=== PATIENT | female | born 1970 | race Caucasian/White ===

== ENCOUNTER 2025-02-05 18:52 | Inpatient (IN) | payer OTHER ==
[2025-02-05] MEDS ORDERED: VANCOMYCIN IV PER PHARMACY 1 EACH MISC MISCELLANE PRN (19:12)
[2025-02-05] MEDS ORDERED: RX INFO: IV CONTRAST WAS GIVEN 1 EACH MISC MISCELLANE PRN (19:13)
--- NOTE | 2025-02-05 19:14 | ED ---
Extremity Problem HPI - General Chief complaint: Extremity Problem,Nontraumatic Stated complaint: L arm injury Time Seen by Provider: 02/05/25 19:02 Source: patient, RN notes reviewed Mode of arrival: ambulatory Limitations: no limitations - History of Present Illness Initial comments: This is a 54-year-old female who presents to the emergency department for left upper extremity pain and swelling. Patient is an IV drug user and last injected meth into the left arm about a week ago. States that 2 days ago she started to notice increasing pain and swelling going down the arm. She has not had any fevers or chills. Denies any nausea/vomiting. She has had abscesses from injecting herself in the past, but has never had anything this severe. States she last had an abscess a couple of years ago. Denies using any other illicit substances. MD Complaint: extremity pain, extremity swelling - Related Data Allergies Allergy/AdvReac Type Severity Reaction Status Date / Time Sulfa (Sulfonamide Allergy Itching Verified 02/05/25 19:03 Antibiotics) Review of Systems ROS Statement: Those systems with pertinent positive or pertinent negative responses have been documented in the HPI. ROS Other: All systems not noted in ROS Statement are negative. Past Medical History Past Medical History: Diabetes Mellitus Additional Past Surgical History / Comment(s): lung surgery Smoking Status: Current every day smoker Past Alcohol Use History: None Reported Past Drug Use History: Methamphetamine General Exam Limitations: no limitations General appearance: alert, in no apparent distress Head exam: Present: atraumatic, normocephalic, normal inspection Respiratory exam: Present: normal lung sounds bilaterally. Absent: respiratory distress, wheezes, rales, rhonchi, stridor Cardiovascular Exam: Present: normal rhythm, tachycardia Extremities exam: Present: other (Diffuse swelling, erythema, warmth, and tenderness to the left upper extremity beginning around the antecubital fossa and spreading distally. 2+ radial pulses) Neurological exam: Present: alert, oriented X3, CN II-XII intact Psychiatric exam: Present: normal affect, normal mood Course Vital Signs 02/05/25 02/05/25 02/05/25 18:58 19:07 21:25 Temperature 98.0 F 98.7 F Pulse Rate 140 H 140 H 126 H Respiratory 17 19 Rate Blood Pressure 164/103 142/106 155/92 O2 Sat by Pulse 98 99 100 Oximetry 02/05/25 23:10 Temperature 98.3 F Pulse Rate 114 H Respiratory 19 Rate Blood Pressure 138/78 O2 Sat by Pulse 99 Oximetry Medical Decision Making - Medical Decision Making This is a 54-year-old female who presents to the emergency department for left arm pain and swelling. Was pt. sent in by a medical professional or institution? @ -No Did you speak to anyone other than the patient for history? @ -No Did you review nursing and triage notes? @ -Yes, and I agree, it is accurate with regards to the patient's symptoms. Were old charts reviewed? @ -No Differential Diagnosis? @ -Differential Musculoskeletal Muscular strain, contusion, ligament sprain, fracture, arthritis, septic arthritis, bursitis, cellulitis, muscle spasm, nerve compression, DVT, arterial occlusion, herpes zoster, electrolyte abnormality, tumor.... This is not meant to be in all inclusive list EKG interpreted by me (3pts min.)? @ -EKG interpreted by me demonstrating the following: Sinus tachycardia. Ventr icular rate 112 bpm, IL interval 112 ms, QRS duration 75 ms, QTc 404 ms. X-rays interpreted by me (1pt min.)? @ -Not obtained CT interpreted by me (1pt min.)? @ -CT scan of the left upper extremity obtained. My interpretation identifies an abscess in the antecubital fossa. U/S interpreted by me (1pt. min.)? @ -Not obtained What testing was considered but not performed? (CT, X-rays, U/S, labs)? Why? @ -None What meds were considered but not given? Why? @ -None Did you discuss the management of the patient with other professionals? @ -Yes, Dr. Bauer, who accepts the patient for admission. Did you reconcile home meds? @ -No Was smoking cessation discussed for >3mins.? @ -No Was critical care preformed (if so, how long)? @ -Yes, >35 minutes Were there social determinants of health that impacted care today? How? (Homelessness, low income, unemployed, alcoholism, drug addiction, transportation, low edu. Level, literacy, decrease access to med. care, prison, rehab)? @ -Drug addiction, leading to the infection Was there de-escalation of care discussed even if they declined? (Discuss DNR or withdrawal of care, Hospice)? @ -No What co-morbidities impacted this encounter? (DM, HTN, Smoking, COPD, CAD, Cancer, CVA, Hep., AIDS, mental health diagnosis, sleep apnea, morbid obesity)? @ -DM, IVDU Was patient admitted / discharged? @ -Admitted. Physical examination of the left upper extremity consistent with diffuse cellulitis with probable abscess over the left antecubital fossa. Lab work demonstrates leukocytosis with a white blood cell count of 16.97. Glucose is 508, lactic acid 2.2, CRP 26.3. She has an anion gap of 18, however carbon dioxide is within normal limits at 25 and acetone negative. Patient tachycardic on arrival with a heart rate in the 140s. She met sepsis criteria at 2100 when the results of her laboratory studies returned demonstrating leukocytosis. SIRS criteria include the leukocytosis and tachycardia. Source of infection is the left upper extremity infection. 2 L of lactated Ringer's administered per sepsis fluid requirements and she was also started on maintenance IV fluids. Blood culture obtained and she was started on vancomycin and Zosyn. CT scan of the left upper extremity was obtained and results returned after the patient was admitted. This demonstrates an abscess in the antecubital fossa consisting of loculated fluid and multiple foci of air. She also has circumferential subcutaneous edema consistent with soft tissue infection. Patient admitted to medicine for left upper extremity cellulitis with sepsis. Consult placed for infectious disease. Case discussed with ED attending Dr. Hniojosa. Undiagnosed new problem with uncertain prognosis? @ -None Drug Therapy requiring intensive monitoring for toxicity (Heparin, Nitro, Insulin, Cardizem)? @ -None Were any procedures done? @ -None Diagnosis/symptom? @ -Left upper extremity cellulitis, sepsis, hyperglycemia Acute, or Chronic, or Acute on Chronic? @ -Acute Uncomplicated (without systemic symptoms) or Complicated (systemic symptoms)? @ -Complicated Side effects of treatment? @ -None Exacerbation, Progression, or Severe Exacerbation] @ -Not applicable Poses a threat to life or bodily function? @ -Yes, can lead to septic shock and - Lab Data Result diagrams: 02/05/25 19:18 02/05/25 19:18 Lab Results 02/05/25 02/05/25 02/05/25 Range/Units 19:18 19:18 19:18 WBC 16.97 H (4.50-10.00) 10*3/uL RBC 5.79 H (4.10-5.20) 10*6/uL Hgb 16.1 H (12.0-15.0) g/dL Hct 47.5 H (37.2-46.3) % MCV 82.0 (80.0-97.0) fL MCH 27.8 (27.0-32.0) pg MCHC 33.9 (32.0-37.0) g/dL Plt Count 462 H (140-440) 10*3/uL MPV 9.3 L (9.5-12.2) fL Immature Gran % (Auto) 0.7 % Neutrophils % 84.3 % Lymphocytes % 10.3 % Monocytes % 4.2 % Eosinophils % 0.1 % Basophils % 0.4 % Immature Gran # 0.12 H (0.00-0.04) 10*3/uL Neutrophils # 14.31 H (1.80-7.70) 10*3/uL Lymphocytes # 1.75 (0.90-5.00) 10*3/uL Monocytes # 0.71 (0.20-1.00) 10*3/uL Eosinophils # 0.02 L (0.04-0.35) 10*3/uL Basophils # 0.06 (0.00-0.10) 10*3/uL Sodium 128 L (137-145) mmol/L Potassium 5.0 (3.5-5.1) mmol/L Chloride 85 L (98-107) mmol/L Carbon Dioxide 25 (22-30) mmol/L Anion Gap 18 mmol/L BUN 10 (7-17) mg/dL Creatinine 0.33 L (0.52-1.04) mg/dL Est GFR (CKD-EPI)AfAm >90 (>60 ml/min/1.73 sqM) Est GFR (CKD-EPI)NonAf >90 (>60 ml/min/1.73 sqM) Glucose 508 H* (74-99) mg/dL Lactic Ac Sepsis Rflx Plasma Lactic Acid Neal 2.2 H* (0.7-2.0) mmol/L Calcium 9.8 (8.4-10.2) mg/dL Total Bilirubin 1.4 H (0.2-1.3) mg/dL AST 33 (14-36) U/L ALT 38 H (4-34) U/L Alkaline Phosphatase 337 H (38-126) U/L C-Reactive Protein 26.3 H (<1.0) mg/dL Total Protein 9.6 H (6.3-8.2) g/dL Albumin 4.5 (3.5-5.0) g/dL Urine Color Urine Appearance (Clear) Urine pH (5.0-8.0) Ur Specific [place] (1.001-1.035) Urine Protein (Negative) Urine Glucose (UA) (Negative) Urine Ketones (Negative) Urine Blood (Negative) Urine Nitrite (Negative) Urine Bilirubin (Negative) Urine Urobilinogen (<2.0) mg/dL Ur Leukocyte Esterase (Negative) Urine RBC (0-5) /hpf Urine WBC (0-5) /hpf Ur Squamous Epith Cells (0-4) /hpf Urine Mucus (None) /hpf Urine Opiates Screen (NotDetected) Ur Oxycodone Screen (NotDetected) Urine Methadone Screen (NotDetected) Ur Barbiturates Screen (NotDetected) U Tricyclic Antidepress (NotDetected) Ur Phencyclidine Scrn (NotDetected) Ur Amphetamines Screen (NotDetected) U Methamphetamines Scrn (NotDetected) U Benzodiazepines Scrn (NotDetected) Urine Cocaine Screen (NotDetected) U Marijuana (THC) Screen (NotDetected) Acetone, Qual (Negative) 02/05/25 02/05/25 02/05/25 Range/Units 19:18 19:22 19:22 WBC (4.50-10.00) 10*3/uL RBC (4.10-5.20) 10*6/uL Hgb (12.0-15.0) g/dL Hct (37.2-46.3) % MCV (80.0-97.0) fL MCH (27.0-32.0) pg MCHC (32.0-37.0) g/dL Plt Count (140-440) 10*3/uL MPV (9.5-12.2) fL Immature Gran % (Auto) % Neutrophils % % Lymphocytes % % Monocytes % % Eosinophils % % Basophils % % Immature Gran # (0.00-0.04) 10*3/uL Neutrophils # (1.80-7.70) 10*3/uL Lymphocytes # (0.90-5.00) 10*3/uL Monocytes # (0.20-1.00) 10*3/uL Eosinophils # (0.04-0.35) 10*3/uL Basophils # (0.00-0.10) 10*3/uL Sodium (137-145) mmol/L Potassium (3.5-5.1) mmol/L Chloride (98-107) mmol/L Carbon Dioxide (22-30) mmol/L Anion Gap mmol/L BUN (7-17) mg/dL Creatinine (0.52-1.04) mg/dL Est GFR (CKD-EPI)AfAm (>60 ml/min/1.73 sqM) Est GFR (CKD-EPI)NonAf (>60 ml/min/1.73 sqM) Glucose (74-99) mg/dL Lactic Ac Sepsis Rflx Plasma Lactic Acid Neal (0.7-2.0) mmol/L Calcium (8.4-10.2) mg/dL Total Bilirubin (0.2-1.3) mg/dL AST (14-36) U/L ALT (4-34) U/L Alkaline Phosphatase (38-126) U/L C-Reactive Protein (<1.0) mg/dL Total Protein (6.3-8.2) g/dL Albumin (3.5-5.0) g/dL Urine Color Colorless Urine Appearance Clear (Clear) Urine pH 6.0 (5.0-8.0) Ur Specific [place] 1.037 H (1.001-1.035) Urine Protein Negative (Negative) Urine Glucose (UA) 4+ H (Negative) Urine Ketones 1+ H (Negative) Urine Blood Small H (Negative) Urine Nitrite Positive H (Negative) Urine Bilirubin Negative (Negative) Urine Urobilinogen <2.0 (<2.0) mg/dL Ur Leukocyte Esterase Negative (Negative) Urine RBC 2 (0-5) /hpf Urine WBC 4 (0-5) /hpf Ur Squamous Epith Cells <1 (0-4) /hpf Urine Mucus Rare H (None) /hpf Urine Opiates Screen Not Detected (NotDetected) Ur Oxycodone Screen Not Detected (NotDetected) Urine Methadone Screen Not Detected (NotDetected) Ur Barbiturates Screen Not Detected (NotDetected) U Tricyclic Antidepress Not Detected (NotDetected) Ur Phencyclidine Scrn Not Detected (NotDetected) Ur Amphetamines Screen Detected H (NotDetected) U Methamphetamines Scrn Detected H (NotDetected) U Benzodiazepines Scrn Not Detected (NotDetected) Urine Cocaine Screen Not Detected (NotDetected) U Marijuana (THC) Screen Not Detected (NotDetected) Acetone, Qual Negative (Negative) 02/05/25 Range/Units 21:57 WBC (4.50-10.00) 10*3/uL RBC (4.10-5.20) 10*6/uL Hgb (12.0-15.0) g/dL Hct (37.2-46.3) % MCV (80.0-97.0) fL MCH (27.0-32.0) pg MCHC (32.0-37.0) g/dL Plt Count (140-440) 10*3/uL MPV (9.5-12.2) fL Immature Gran % (Auto) % Neutrophils % % Lymphocytes % % Monocytes % % Eosinophils % % Basophils % % Immature Gran # (0.00-0.04) 10*3/uL Neutrophils # (1.80-7.70) 10*3/uL Lymphocytes # (0.90-5.00) 10*3/uL Monocytes # (0.20-1.00) 10*3/uL Eosinophils # (0.04-0.35) 10*3/uL Basophils # (0.00-0.10) 10*3/uL Sodium (137-145) mmol/L Potassium (3.5-5.1) mmol/L Chloride (98-107) mmol/L Carbon Dioxide (22-30) mmol/L Anion Gap mmol/L BUN (7-17) mg/dL Creatinine (0.52-1.04) mg/dL Est GFR (CKD-EPI)AfAm (>60 ml/min/1.73 sqM) Est GFR (CKD-EPI)NonAf (>60 ml/min/1.73 sqM) Glucose (74-99) mg/dL Lactic Ac Sepsis Rflx Y Plasma Lactic Acid Neal (0.7-2.0) mmol/L Calcium (8.4-10.2) mg/dL Total Bilirubin (0.2-1.3) mg/dL AST (14-36) U/L ALT (4-34) U/L Alkaline Phosphatase (38-126) U/L C-Reactive Protein (<1.0) mg/dL Total Protein (6.3-8.2) g/dL Albumin (3.5-5.0) g/dL Urine Color Urine Appearance (Clear) Urine pH (5.0-8.0) Ur Specific [place] (1.001-1.035) Urine Protein (Negative) Urine Glucose (UA) (Negative) Urine Ketones (Negative) Urine Blood (Negative) Urine Nitrite (Negative) Urine Bilirubin (Negative) Urine Urobilinogen (<2.0) mg/dL Ur Leukocyte Esterase (Negative) Urine RBC (0-5) /hpf Urine WBC (0-5) /hpf Ur Squamous Epith Cells (0-4) /hpf Urine Mucus (None) /hpf Urine Opiates Screen (NotDetected) Ur Oxycodone Screen (NotDetected) Urine Methadone Screen (NotDetected) Ur Barbiturates Screen (NotDetected) U Tricyclic Antidepress (NotDetected) Ur Phencyclidine Scrn (NotDetected) Ur Amphetamines Screen (NotDetected) U Methamphetamines Scrn (NotDetected) U Benzodiazepines Scrn (NotDetected) Urine Cocaine Screen (NotDetected) U Marijuana (THC) Screen (NotDetected) Acetone, Qual (Negative) - Radiology Data Radiology results: report reviewed, image reviewed Critical Care Time Critical Care Time: Yes Critical Care Time: >35 minutes Disposition Clinical Impression: Left arm cellulitis, IVDU (intravenous drug user), Sepsis, Hyperglycemia Disposition: ADMITTED IP TO THIS HOSP
[2025-02-05 20:25] LABS: Amphetamine Screen,Urine Detected (NotDetected); Barbiturate Screen,Urine Not Detected (NotDetected); Benzodiazepines Screen,Urine Not Detected (NotDetected); Cocaine Screen,Urine Not Detected (NotDetected); Methadone Screen, Urine Not Detected (NotDetected); Opiate Screen,Urine Not Detected (NotDetected); Oxycodone Screen, Urine Not Detected (NotDetected); Phencyclidine Screen,Urine Not Detected (NotDetected); Tricyclic Antidepressant,Urine Not Detected (NotDetected); Urn Cannabinoid Scrn Not Detected (NotDetected)
[2025-02-05] MEDS: LACTATED RINGERS 1,000 ML IV SCH ×2 (21:00→23:48)
[2025-02-05 21:11] LABS: Basophils # (A) 0.06 10*3/uL (0.00-0.10); Basophils % (A) 0.4 %; Eosinophils # (A) 0.02 10*3/uL (0.04-0.35); Eosinophils % (A) 0.1 %; HCT 47.5 % (37.2-46.3); HGB 16.1 g/dL (12.0-15.0); Lymphocytes # (A) 1.75 10*3/uL (0.90-5.00); Lymphocytes % (A) 10.3 %; MCH 27.8 pg (27.0-32.0); MCHC 33.9 g/dL (32.0-37.0); Mean Platelet Volume 9.3 fL (9.5-12.2); Monocytes # (A) 0.71 10*3/uL (0.20-1.00); Monocytes % (A) 4.2 %; Neutrophils # (A) 14.31 10*3/uL (1.80-7.70); Neutrophils % (A) 84.3 %; Platelet Count 462 10*3/uL (140-440); RBC 5.79 10*6/uL (4.10-5.20); RDW 11.9 % (11.5-14.5); WBC 16.97 10*3/uL (4.50-10.00)
[2025-02-05] MEDS: VANCOMYCIN 1,000 MG in SODIUM CHLORIDE 0.9% 250 ML IVPB ONE (21:17)
[2025-02-05] MEDS: ACETAMINOPHEN TAB 500 MG TAB PO STA (21:20)
[2025-02-05] MEDS: KETOROLAC 15 MG/ML 1 ML VIAL IVP STA (21:21)
[2025-02-05 21:36] LABS: ALT 38 U/L (4-34); AST 33 U/L (14-36); African American GFR (CKD) >90 (>60 ml/min/1.73 sqM); Albumin 4.5 g/dL (3.5-5.0); Alkaline Phosphatase 337 U/L (38-126); Anion Gap 18 mmol/L; Blood Urea Nitrogen 10 mg/dL (7-17); Calcium 9.8 mg/dL (8.4-10.2); Carbon Dioxide 25 mmol/L (22-30); Chloride 85 mmol/L (98-107); Non-African American GFR(CKD) >90 (>60 ml/min/1.73 sqM); Sodium 128 mmol/L (137-145); Total Bilirubin 1.4 mg/dL (0.2-1.3); Total Protein 9.6 g/dL (6.3-8.2)
[2025-02-05 21:58] LABS: C Reactive Protein 26.3 mg/dL (<1.0); Glucose 508 mg/dL (74-99)
[2025-02-05 22:31] LABS: Appearance,Urine Clear (Clear); Bilirubin,Urine Negative (Negative); Blood,Urine Small (Negative); Color,Urine Colorless; Glucose,Urine (UA) 4+ (Negative); Ketones,Urine 1+ (Negative); Leukocyte Esterase,Urine Negative (Negative); Mucus,Urine Rare /hpf; Nitrite,Urine Positive (Negative); Protein,Urine Negative (Negative); RBC,Urine 2 /hpf (0-5); Specific Gravity,Urine 1.037 (1.001-1.035); Squamous Epithelial Cell,Urine <1 /hpf (0-4); Urobilinogen,Urine <2.0 mg/dL (<2.0); WBC,Urine 4 /hpf (0-5)
[2025-02-05] MEDS ORDERED: ONDANSETRON 4 MG/2 ML VIAL IVP PRN (23:19)
[2025-02-05] MEDS ORDERED: ACETAMINOPHEN TAB 325 MG TAB PO PRN (23:19)
[2025-02-05] MEDS ORDERED: NALOXONE 0.4 MG/ML 1 ML VIAL IV PRN (23:19)
[2025-02-05 23:23] LABS: Glucose,Whole Blood 335 mg/dL (70-110)
[2025-02-05] MEDS: PIPERACILLIN-TAZOBACTAM 3.375 GM in SODIUM CHLORIDE 0.9% 100 ML IVPB SCH (23:46)
[2025-02-05] MEDS: INSULIN REGULAR 100 UNIT/ML VIAL (IM/SQ) SQ ONE ×2 (23:49→23:59)
[2025-02-06] MEDS ORDERED: DEXTROSE 50% SYRINGE 50 ML IVP PRN ×2 (00:11)
--- NOTE | 2025-02-06 01:56 | CT ---
EXAM: CT Left Upper Extremity With Intravenous Contrast CLINICAL HISTORY: ITS.REASON CT Reason: Infection from IVDU TECHNIQUE: Axial computed tomography images of the left upper extremity with intravenous contrast. CTDI is 8.9 mGy and DLP is 530.5 mGy-cm. This CT exam was performed using one or more of the following dose reduction techniques: automated exposure control, adjustment of the mA and/or kV according to patient size, and/or use of iterative reconstruction technique. COMPARISON: No relevant prior studies available. FINDINGS: Bones/joints: Unremarkable. No acute fracture. No dislocation. No CT evidence of osteomyelitis. Soft tissues: Circumferential subcutaneous edema, consistent with soft tissue infection. Vasculature: Intravenous drug abuser, with abscess in the antecubital fossa, which measures approximately 4.9 x 3.8 x 7.0 cm. This consists of loculated fluid and multiple foci of air. Surgical evaluation recommended. IMPRESSION: Intravenous drug abuser, with abscess in the antecubital fossa, which measures approximately 4.9 x 3.8 x 7.0 cm. This consists of loculated fluid and multiple foci of air. Surgical evaluation recommended.
--- NOTE | 2025-02-06 02:14 | P.HPIM ---
History of Present Illness H&P Date: 02/06/25 History of present illness; 54-year-old female with PMH of diabetes mellitus and regular IV drug use who presents to the emergency department with left upper extremity pain and swelling. She states that the pain began 2 days ago when she noticed increasing pain and swelling radiating down her left arm. She is an IV drug user and reports last injecting meth into her left arm approximately 1 week prior. States she noticed it almost immediately and it has progressively worsened. She denies fever, nausea, vomiting. She does state that she has had previous abscesses from injecting herself in the past, however notes none have been this severe. Believes her last abscess was approximately 2 years prior. Labratory review: - WBCs at 16.97, hemoglobin 16.1, hematocrit 47.5, platelet 462; sodium 128, potassium 5.0, chloride 85, bicarb 25, BUN 10, creatinine 0.33, lactic acid 2.2, calcium 9.8, total bilirubin 1.4, AST 33, ALT 38, alkaline phosphatase 337, CRP 26.3 - Urinalysis 4+ glucose, 1+ ketone, positive nitrites - Urine toxicology screen positive for methamphetamines as well as amphetamines Imaging: CT scan of the left upper extremity showed abscess in the antecubital fossa measuring approximately 4.9 x 3.8 x 7.0 cm consisting of loculated fluid and multiple foci of air Vitals: - On arrival: Blood pressure 164/103, heart rate 140, respiratory rate 17, SpO2 98% on room air - Most recently: Blood pressure 138/78, heart rate 114, respiratory rate 19, SpO2 99% on room air Patient admitted to internal medicine service REVIEW OF SYSTEMS: Pertinent positives and negatives noted in HPI. The rest of the 14-point review of systems is negative. Physical Exam: General: nontoxic, no distress, appears older than stated age with poor dentition Derm: warm, dry, intact Head: atraumatic, normocephalic, symmetric Eyes: EOMI, anicteric sclera Mouth: no lip lesion, mucus membranes moist Cardiovascular: S1 S2 reg, no murmur, rubs, or gallops Lungs: CTA bilateral, no rales, no accessory muscle use Abdominal: soft, non-tender to palpataion, no appreciable organomegaly Extremities: LUE with noted 2+ pitting edema extending to the wrist and up to mid-way up the upper arm. Noted erythema on the left arm around the antecubital fossa with a noted site of puncture and likely abscess. RLE with TTP to light touch Neuro: Alert, Oriented, CNII-XII grossly intact, gait normal Psych: well appearing, appropriate affect Assessment and plan 54-year-old female with PMH of diabetes mellitus and regular IV drug use who presents to the emergency department with left upper extremity pain and swelling. #Abscess in antecubital fossa measuring 4.9 x 3.8 x 7.0 cm #Left upper extremity cellulitis #Sepsis, secondary to above #Lactic acidosis, resolved - Left upper extremity CT read and reviewed, showed evidence of abscess in antecubital fossa measuring 4.9 x 3.8 x 7.0 cm - Received a 2 L bolus LR's in ED - Continue with LR at 130 cc/h - Continue with vancomycin, Rocephin and Flagyl for total of 5-7 days - Blood culture ordered, currently pending - Trend lactic acid: 2.2 -> 1.0 - CRP 26.3 - HIV, hepatitis, syphilis screening ordered, currently pending - Infectious disease consulted - General Surgery consulted for possible drainage - Social work consulted #Hyperglycemia - On arrival glucose 508 - Received total of 15 units insulin in the ED - Accu-Cheks ACHS - Initiate sliding scale - Hemoglobin A1c ordered, currently pending - Monitor for hypoglycemia #Polycythemia #Thrombocytosis - Possible both secondary to poor oral intake - Received 2 L LR boluses in ED, continue with 130 cc/h LR - Continue to monitor CBC GI prophylaxis: Protonix 40 mg daily DVT prophylaxis: Lovenox 40 mg subcu daily The patient is admitted with an anticipated more than than 2 midnight stay for evaluation of left upper extremity abscess, cellulitis and sepsis. CODE STATUS: Full code Discussed with: Patient Anticipated discharge place: Pending clinical course Dictation was produced using [employer] dictation software. please excuse any grammatical, word or spelling errors. Jai Nguyễn MD PGY-1 IM Past Medical History Past Medical History: Diabetes Mellitus Additional Past Surgical History / Comment(s): lung surgery Smoking Status: Current every day smoker Past Alcohol Use History: None Reported Past Drug Use History: Methamphetamine Medications and Allergies Allergies Allergy/AdvReac Type Severity Reaction Status Date / Time Sulfa (Sulfonamide Allergy Itching Verified 02/05/25 19:03 Antibiotics) Physical Exam Vitals: Vital Signs Temp Pulse Resp BP Pulse Ox 02/05/25 23:10 98.3 F 114 H 19 138/78 99 02/05/25 21:25 98.7 F 126 H 19 155/92 100 02/05/25 19:07 140 H 142/106 99 02/05/25 18:58 98.0 F 140 H 17 164/103 98 Intake and Output 02/05/25 02/05/25 02/06/25 14:59 22:59 06:59 Other: Weight 54.431 kg Results CBC & Chem 7: 02/05/25 19:18 02/05/25 19:18 Labs: Abnormal Lab Results - Last 24 Hours (Table) 02/05/25 02/05/25 02/05/25 Range/Units 19:18 19:18 19:18 WBC 16.97 H (4.50-10.00) 10*3/uL RBC 5.79 H (4.10-5.20) 10*6/uL Hgb 16.1 H (12.0-15.0) g/dL Hct 47.5 H (37.2-46.3) % Plt Count 462 H (140-440) 10*3/uL MPV 9.3 L (9.5-12.2) fL Immature Gran # 0.12 H (0.00-0.04) 10*3/uL Neutrophils # 14.31 H (1.80-7.70) 10*3/uL Eosinophils # 0.02 L (0.04-0.35) 10*3/uL Sodium 128 L (137-145) mmol/L Chloride 85 L (98-107) mmol/L Creatinine 0.33 L (0.52-1.04) mg/dL Glucose 508 H* (74-99) mg/dL POC Glucose (mg/dL) (70-110) mg/dL Plasma Lactic Acid Neal 2.2 H* (0.7-2.0) mmol/L Total Bilirubin 1.4 H (0.2-1.3) mg/dL ALT 38 H (4-34) U/L Alkaline Phosphatase 337 H (38-126) U/L C-Reactive Protein 26.3 H (<1.0) mg/dL Total Protein 9.6 H (6.3-8.2) g/dL Ur Specific [place] (1.001-1.035) Urine Glucose (UA) (Negative) Urine Ketones (Negative) Urine Blood (Negative) Urine Nitrite (Negative) Urine Mucus (None) /hpf Ur Amphetamines Screen (NotDetected) U Methamphetamines Scrn (NotDetected) 02/05/25 02/05/25 02/05/25 Range/Units 19:22 19:22 23:22 WBC (4.50-10.00) 10*3/uL RBC (4.10-5.20) 10*6/uL Hgb (12.0-15.0) g/dL Hct (37.2-46.3) % Plt Count (140-440) 10*3/uL MPV (9.5-12.2) fL Immature Gran # (0.00-0.04) 10*3/uL Neutrophils # (1.80-7.70) 10*3/uL Eosinophils # (0.04-0.35) 10*3/uL Sodium (137-145) mmol/L Chloride (98-107) mmol/L Creatinine (0.52-1.04) mg/dL Glucose (74-99) mg/dL POC Glucose (mg/dL) 335 H (70-110) mg/dL Plasma Lactic Acid Neal (0.7-2.0) mmol/L Total Bilirubin (0.2-1.3) mg/dL ALT (4-34) U/L Alkaline Phosphatase (38-126) U/L C-Reactive Protein (<1.0) mg/dL Total Protein (6.3-8.2) g/dL Ur Specific [place] 1.037 H (1.001-1.035) Urine Glucose (UA) 4+ H (Negative) Urine Ketones 1+ H (Negative) Urine Blood Small H (Negative) Urine Nitrite Positive H (Negative) Urine Mucus Rare H (None) /hpf Ur Amphetamines Screen Detected H (NotDetected) U Methamphetamines Scrn Detected H (NotDetected)
[2025-02-06 04:36] LABS: Erythrocyte Sedimentation Rate >130 mm/Hr (0-30)
[2025-02-06] MEDS: metroNIDAZOLE-NS PMX 500 MG in SALINE 1 100ML.BAG IVPB SCH (05:13)
[2025-02-06 07:44] LABS: Glucose,Whole Blood 319 mg/dL (70-110)
[2025-02-06] MEDS: INSULIN LISPRO (HumaLOG) 100 UNIT/ML 10 mL VL SQ SCH ×2 (07:52→12:50)
[2025-02-06] MEDS: VANCOMYCIN 1,000 MG in SODIUM CHLORIDE 0.9% 250 ML IVPB SCH (07:52)
[2025-02-06 07:57] LABS: Basophils # (A) 0.04 10*3/uL (0.00-0.10); Basophils % (A) 0.3 %; Eosinophils # (A) 0.08 10*3/uL (0.04-0.35); Eosinophils % (A) 0.6 %; HCT 36.6 % (37.2-46.3); Lymphocytes # (A) 1.19 10*3/uL (0.90-5.00); Lymphocytes % (A) 8.8 %; MCH 28.5 pg (27.0-32.0); MCV 81.5 fL (80.0-97.0); Mean Platelet Volume 9.4 fL (9.5-12.2); Monocytes # (A) 0.73 10*3/uL (0.20-1.00); Monocytes % (A) 5.4 %; Neutrophils # (A) 11.35 10*3/uL (1.80-7.70); Neutrophils % (A) 84.2 %; Platelet Count 323 10*3/uL (140-440); RBC 4.49 10*6/uL (4.10-5.20); RDW 11.8 % (11.5-14.5); WBC 13.48 10*3/uL (4.50-10.00)
[2025-02-06 07:58] LABS: ALT 21 U/L (4-34); AST 23 U/L (14-36); African American GFR (CKD) >90 (>60 ml/min/1.73 sqM); Albumin 2.7 g/dL (3.5-5.0); Alkaline Phosphatase 199 U/L (38-126); Anion Gap 7 mmol/L; Blood Urea Nitrogen 9 mg/dL (7-17); Calcium 8.4 mg/dL (8.4-10.2); Carbon Dioxide 25 mmol/L (22-30); Chloride 97 mmol/L (98-107); Glucose 288 mg/dL (74-99); Non-African American GFR(CKD) >90 (>60 ml/min/1.73 sqM); Potassium 3.3 mmol/L (3.5-5.1); Sodium 129 mmol/L (137-145); Total Bilirubin 0.7 mg/dL (0.2-1.3); Total Protein 6.1 g/dL (6.3-8.2)
[2025-02-06 08:02] LABS: HGB 12.8 g/dL (12.0-15.0)
[2025-02-06] MEDS: IBUPROFEN 400 MG TAB PO PRN (09:09)
[2025-02-06] MEDS: PANTOPRAZOLE 40 MG/10 ML VIAL IV SCH (09:09)
[2025-02-06] MEDS: LIDOCAINE 1%-EPI 1:100,000 20 ML VIAL SQ ONE (12:23)
--- NOTE | 2025-02-06 12:51 | P.GSCN ---
History of Present Illness Consult date: 02/06/25 History of present illness: CHIEF COMPLAINT: Left arm abscess HISTORY OF PRESENT ILLNESS: This is a 54-year-old female with a known history of IV drug use and diabetes. Patient reports she last injected meth about 1 week ago in the left arm antecubital area. And the last 2 to 3 days she had increased arm swelling and arm pain. There is area of erythema at the ante cubital fossa with evidence of abscess. Now having drainage that started this morning. CT scan of the left arm reported abscess in the antecubital fossa measuring 4.9 x 3.8 x 7.0 cm. Patient reports that she has had chills and sweats and felt feverish. Currently afebrile. She has had mild tachycardia. And has had elevated white count. Blood sugars also elevated on admission. Surgical service has been consulted for left upper extremity abscess. Patient does report having prior history of abscesses that have drained spontaneously. PAST MEDICAL HISTORY: See below PAST SURGICAL HISTORY: See below MEDICATIONS: See below ALLERGIES: See below SOCIAL HISTORY: No illicit drug use. REVIEW OF SYSTEMS: CONSTITUTIONAL: Denies fever or chills. HEENT: Denies blurred vision, vision changes, or eye pain. Denies hemoptysis CARDIOVASCULAR: Denies chest pain or pressure. RESPIRATORY: No shortness of breath. GASTROINTESTINAL: See HPI for pertinent findings HEMATOLOGIC: Denies bleeding disorders. GENITOURINARY: Denies any blood in urine or increased urinary frequency. SKIN: Denies pruitis. Denies rash. PHYSICAL EXAM: VITAL SIGNS: Reviewed GENERAL: Well-developed in no acute distress. Extremities: Left arm antecubital fossa. Patient has abscess noted. Area of erythema fluctuance and induration. There is purulent drainage noted. Tender with palpation. Patient's whole left arm is swollen. The area of erythema had been marked and is slightly decreased in size. +2 radial pulse on the left. NEUROLOGIC: Alert and oriented. Cranial nerves II through XII grossly intact. LABORATORY DATA: WBC is down from 16.9-13.48 Hgb 12.8 platelets 323 Sodium 129 potassium 3.3 creatinine 0.26 Glucose 508 Drug screen positive for amphetamines and methamphetamines IMAGING: CT scan left upper extremity intravenous drug abuser with abscess in the antecubital fossa measuring 4.9 x 3.8 x 7.0 cm consistent with loculated fluid and multiple foci of air. ASSESSMENT: 1. Left antecubital fossa abscess due to IV drug use 2. Diabetes mellitus with elevated blood sugars PLAN: - Patient will have bedside incision and drainage of left arm abscess today with Dr. 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 Signing provider agrees with the documented findings, assessment, and plan of care. Past Medical History Past Medical History: Diabetes Mellitus Additional Past Surgical History / Comment(s): lung surgery Smoking Status: Current every day smoker Past Alcohol Use History: None Reported Past Drug Use History: Methamphetamine Medications and Allergies Home Medications Medication Instructions Recorded Confirmed Type Insulin Glargine,Hum.rec.anlog 15 - 20 units SQ HS 02/06/25 02/06/25 History [Lantus Solostar Pen] Allergies Allergy/AdvReac Type Severity Reaction Status Date / Time Sulfa (Sulfonamide Allergy Itching Verified 02/06/25 04:54 Antibiotics) Surgical - Exam Osteopathic Statement: *. No significant issues noted on an osteopathic structural exam other than those noted in the History and Physical/Consult. Vital Signs Temp Pulse Resp BP Pulse Ox 98.0 F 140 H 17 164/103 98 02/05/25 18:58 02/05/25 18:58 02/05/25 18:58 02/05/25 18:58 02/05/25 18:58 Results - Labs 02/06/25 07:16 02/06/25 07:16 Abnormal Lab Results - Last 24 Hours (Table) 02/05/25 02/05/25 02/05/25 Range/Units 19:18 19:18 19:18 WBC 16.97 H (4.50-10.00) 10*3/uL RBC 5.79 H (4.10-5.20) 10*6/uL Hgb 16.1 H (12.0-15.0) g/dL Hct 47.5 H (37.2-46.3) % Plt Count 462 H (140-440) 10*3/uL MPV 9.3 L (9.5-12.2) fL Immature Gran # 0.12 H (0.00-0.04) 10*3/uL Neutrophils # 14.31 H (1.80-7.70) 10*3/uL Eosinophils # 0.02 L (0.04-0.35) 10*3/uL ESR >130 H (0-30) mm/Hr Sodium 128 L (137-145) mmol/L Potassium (3.5-5.1) mmol/L Chloride 85 L (98-107) mmol/L Creatinine 0.33 L (0.52-1.04) mg/dL Glucose 508 H* (74-99) mg/dL POC Glucose (mg/dL) (70-110) mg/dL Plasma Lactic Acid Neal 2.2 H* (0.7-2.0) mmol/L Total Bilirubin 1.4 H (0.2-1.3) mg/dL ALT 38 H (4-34) U/L Alkaline Phosphatase 337 H (38-126) U/L C-Reactive Protein 26.3 H (<1.0) mg/dL Total Protein 9.6 H (6.3-8.2) g/dL Albumin (3.5-5.0) g/dL Ur Specific [place] (1.001-1.035) Urine Glucose (UA) (Negative) Urine Ketones (Negative) Urine Blood (Negative) Urine Nitrite (Negative) Urine Mucus (None) /hpf Ur Amphetamines Screen (NotDetected) U Methamphetamines Scrn (NotDetected) 02/05/25 02/05/25 02/05/25 Range/Units 19:22 19:22 23:22 WBC (4.50-10.00) 10*3/uL RBC (4.10-5.20) 10*6/uL Hgb (12.0-15.0) g/dL Hct (37.2-46.3) % Plt Count (140-440) 10*3/uL MPV (9.5-12.2) fL Immature Gran # (0.00-0.04) 10*3/uL Neutrophils # (1.80-7.70) 10*3/uL Eosinophils # (0.04-0.35) 10*3/uL ESR (0-30) mm/Hr Sodium (137-145) mmol/L Potassium (3.5-5.1) mmol/L Chloride (98-107) mmol/L Creatinine (0.52-1.04) mg/dL Glucose (74-99) mg/dL POC Glucose (mg/dL) 335 H (70-110) mg/dL Plasma Lactic Acid Neal (0.7-2.0) mmol/L Total Bilirubin (0.2-1.3) mg/dL ALT (4-34) U/L Alkaline Phosphatase (38-126) U/L C-Reactive Protein (<1.0) mg/dL Total Protein (6.3-8.2) g/dL Albumin (3.5-5.0) g/dL Ur Specific [place] 1.037 H (1.001-1.035) Urine Glucose (UA) 4+ H (Negative) Urine Ketones 1+ H (Negative) Urine Blood Small H (Negative) Urine Nitrite Positive H (Negative) Urine Mucus Rare H (None) /hpf Ur Amphetamines Screen Detected H (NotDetected) U Methamphetamines Scrn Detected H (NotDetected) 02/06/25 02/06/25 02/06/25 Range/Units 07:16 07:16 07:42 WBC 13.48 H (4.50-10.00) 10*3/uL RBC (4.10-5.20) 10*6/uL Hgb (12.0-15.0) g/dL Hct 36.6 L (37.2-46.3) % Plt Count (140-440) 10*3/uL MPV 9.4 L (9.5-12.2) fL Immature Gran # 0.09 H (0.00-0.04) 10*3/uL Neutrophils # 11.35 H (1.80-7.70) 10*3/uL Eosinophils # (0.04-0.35) 10*3/uL ESR (0-30) mm/Hr Sodium 129 L (137-145) mmol/L Potassium 3.3 L (3.5-5.1) mmol/L Chloride 97 L (98-107) mmol/L Creatinine 0.26 L (0.52-1.04) mg/dL Glucose 288 H (74-99) mg/dL POC Glucose (mg/dL) 319 H (70-110) mg/dL Plasma Lactic Acid Neal (0.7-2.0) mmol/L Total Bilirubin (0.2-1.3) mg/dL ALT (4-34) U/L Alkaline Phosphatase 199 H (38-126) U/L C-Reactive Protein (<1.0) mg/dL Total Protein 6.1 L (6.3-8.2) g/dL Albumin 2.7 L (3.5-5.0) g/dL Ur Specific [place] (1.001-1.035) Urine Glucose (UA) (Negative) Urine Ketones (Negative) Urine Blood (Negative) Urine Nitrite (Negative) Urine Mucus (None) /hpf Ur Amphetamines Screen (NotDetected) U Methamphetamines Scrn (NotDetected) Diabetes panel 02/05/25 02/06/25 Range/Units 19:18 07:16 Sodium 128 L 129 L (137-145) mmol/L Potassium 5.0 3.3 L (3.5-5.1) mmol/L Chloride 85 L 97 L (98-107) mmol/L Carbon Dioxide 25 25 (22-30) mmol/L BUN 10 9 (7-17) mg/dL Creatinine 0.33 L 0.26 L (0.52-1.04) mg/dL Glucose 508 H* 288 H (74-99) mg/dL Calcium 9.8 8.4 (8.4-10.2) mg/dL AST 33 23 (14-36) U/L ALT 38 H 21 (4-34) U/L Alkaline Phosphatase 337 H 199 H (38-126) U/L Total Protein 9.6 H 6.1 L (6.3-8.2) g/dL Albumin 4.5 2.7 L (3.5-5.0) g/dL Calcium panel 02/05/25 02/06/25 Range/Units 19:18 07:16 Calcium 9.8 8.4 (8.4-10.2) mg/dL Albumin 4.5 2.7 L (3.5-5.0) g/dL Pituitary panel 02/05/25 02/06/25 Range/Units 19:18 07:16 Sodium 128 L 129 L (137-145) mmol/L Potassium 5.0 3.3 L (3.5-5.1) mmol/L Chloride 85 L 97 L (98-107) mmol/L Carbon Dioxide 25 25 (22-30) mmol/L BUN 10 9 (7-17) mg/dL Creatinine 0.33 L 0.26 L (0.52-1.04) mg/dL Glucose 508 H* 288 H (74-99) mg/dL Calcium 9.8 8.4 (8.4-10.2) mg/dL Adrenal panel 02/05/25 02/06/25 Range/Units 19:18 07:16 Sodium 128 L 129 L (137-145) mmol/L Potassium 5.0 3.3 L (3.5-5.1) mmol/L Chloride 85 L 97 L (98-107) mmol/L Carbon Dioxide 25 25 (22-30) mmol/L BUN 10 9 (7-17) mg/dL Creatinine 0.33 L 0.26 L (0.52-1.04) mg/dL Glucose 508 H* 288 H (74-99) mg/dL Calcium 9.8 8.4 (8.4-10.2) mg/dL Total Bilirubin 1.4 H 0.7 (0.2-1.3) mg/dL AST 33 23 (14-36) U/L ALT 38 H 21 (4-34) U/L Alkaline Phosphatase 337 H 199 H (38-126) U/L Total Protein 9.6 H 6.1 L (6.3-8.2) g/dL Albumin 4.5 2.7 L (3.5-5.0) g/dL Assessment and Plan Assessment: s/p Incision and drainage removed about 200cc of purulent material recommend ID consult packing in place, remove 1/2 packing in am Time with Patient: Less than 30
[2025-02-06 13:01] LABS: HIV 2 AB Non-Reactive (Non-Reactive); HIV AB P24 Non-Reactive (Non-Reactive); HIV P24 AG Non-Reactive (Non-Reactive)
--- NOTE | 2025-02-06 14:04 | P.PN ---
Subjective Progress Note Date: 02/06/25 Patient is a 54-year-old female with PMH of diabetes mellitus and regular IV drug use who presents to the emergency department with left upper extremity pain and swelling. She states that the pain began 2 days ago when she noticed increasing pain and swelling radiating down her left arm. She is an IV drug user and reports last injecting meth into her left arm approximately 1 week prior. States she noticed it almost immediately and it has progressively worsened. She denies fever, nausea, vomiting. She does state that she has had previous abscesses from injecting herself in the past, however notes none have been this severe. Believes her last abscess was approximately 2 years prior.WB Cs at 16.97, hemoglobin 16.1, sodium 128, potassium 5.0, chloride 85, bicarb 25, BUN 10, creatinine 0.33, lactic acid 2.2, calcium 9.8, total bilirubin 1.4, AST 33, ALT 38, alkaline phosphatase 337, CRP 26.3. Urine toxicology screen positive for methamphetamines as well as amphetamines. CT scan of the left upper extremity showed abscess in the antecubital fossa measuring approximately 4.9 x 3.8 x 7.0 cm consisting of loculated fluid and multiple foci of air. Patient was admitted for management of sepsis secondary to abscess, started on vancomycin, Rocephin, Flagyl, ID consulted, general surgery consulted, HIV, hepatitis and syphilis screening ordered. 02/06: Patient was seen and examined in the ER, complains of ongoing left arm pain, otherwise denies any complaints at this time. Surgery planning for bedside I&D. WBC trending down to 13.4, corrected sodium 132, potassium 3.3, blood glucose is not controlled, added basal bolus regimen with Lantus. 10, mealtime 3. ID switched antibiotics to vancomycin and cefepime. Pertinent positives and negatives as discussed in HPI, a complete review of systems was performed and all other systems are negative. Patient seen and examined at bedside. [] Vital signs reviewed General: nontoxic, no distress, appears at stated age Derm: warm, dry Head: atraumatic, normocephalic, symmetric Eyes: EOMI, no lid lag, anicteric sclera, pupils equal round reactive to light ENT: Nose and ears atraumatic Neck: No thyromegaly, supple Mouth: no lip lesion, mucus membranes moist Cardiovascular: S1S2 reg, no murmur, no edema Lungs: clear to auscultation bilateral, no rhonchi, no rales, no wheeze, no accessory muscle use Abdominal: soft, nontender to palpation, no guarding, no appreciable organomegaly Ext: no gross muscle atrophy, muscle strength muscle strength 5 out of 5 in all 4 extremities, no contractures, LUE edema extending to the wrist and up to mid-way up the upper arm. Noted erythema on the left arm around the antecubital fossa with a noted site of puncture, purulent drainage Neuro: CN II-XII grossly intact Psych: Alert, oriented, appropriate affect Assessment/Plan: Sepsis secondary to left upper extremity cellulitis, abscess Lactic acidosis secondary to above, resolved -ID consulted, appreciate recommendations, antibiotics switched to vancomycin pharmacy to dose and cefepime 2 g every 8 hours, will monitor BMP daily for renal toxicity -Continue IV fluids at 130 cc/h with LR -General Surgery consulted, patient recommendations, plan for bedside I&D - Blood cultures pendin - Monitor CBC daily - HIV nonreactive -Social work consulted Type II DM - A1c pending - Started on basal bolus insulin with Lantus 10 and mealtime 3 units along with SSI, continue Accu-Cheks and hypoglycemia precautions Polycythemia Thrombocytosis -Continue IV hydration, monitor daily CBC IV drug use -Social work consulted -HIV negative, hepatitis and syphilis pending CODE STATUS: Full DVT prophylaxis: Lovenox Anticipated discharge date: TBD Anticipated discharge place: TBD Objective - Vital Signs Vital signs: Vital Signs Temp 100 F H 02/06/25 09:16 Pulse 105 H 02/06/25 13:49 Resp 18 02/06/25 13:49 BP 148/82 02/06/25 13:49 Pulse Ox 98 02/06/25 13:49 FiO2 Intake & Output 02/05/25 02/06/25 02/06/25 18:59 06:59 18:59 Weight 54.431 kg - Labs CBC & Chem 7: 02/06/25 07:16 02/06/25 07:16 Labs: Abnormal Lab Results - Last 24 Hours (Table) 02/05/25 02/05/25 02/05/25 Range/Units 19:18 19:18 19:18 WBC 16.97 H (4.50-10.00) 10*3/uL RBC 5.79 H (4.10-5.20) 10*6/uL Hgb 16.1 H (12.0-15.0) g/dL Hct 47.5 H (37.2-46.3) % Plt Count 462 H (140-440) 10*3/uL MPV 9.3 L (9.5-12.2) fL Immature Gran # 0.12 H (0.00-0.04) 10*3/uL Neutrophils # 14.31 H (1.80-7.70) 10*3/uL Eosinophils # 0.02 L (0.04-0.35) 10*3/uL ESR >130 H (0-30) mm/Hr Sodium 128 L (137-145) mmol/L Potassium (3.5-5.1) mmol/L Chloride 85 L (98-107) mmol/L Creatinine 0.33 L (0.52-1.04) mg/dL Glucose 508 H* (74-99) mg/dL POC Glucose (mg/dL) (70-110) mg/dL Plasma Lactic Acid Neal 2.2 H* (0.7-2.0) mmol/L Total Bilirubin 1.4 H (0.2-1.3) mg/dL ALT 38 H (4-34) U/L Alkaline Phosphatase 337 H (38-126) U/L C-Reactive Protein 26.3 H (<1.0) mg/dL Total Protein 9.6 H (6.3-8.2) g/dL Albumin (3.5-5.0) g/dL Ur Specific [place] (1.001-1.035) Urine Glucose (UA) (Negative) Urine Ketones (Negative) Urine Blood (Negative) Urine Nitrite (Negative) Urine Mucus (None) /hpf Ur Amphetamines Screen (NotDetected) U Methamphetamines Scrn (NotDetected) 02/05/25 02/05/25 02/05/25 Range/Units 19:22 19:22 23:22 WBC (4.50-10.00) 10*3/uL RBC (4.10-5.20) 10*6/uL Hgb (12.0-15.0) g/dL Hct (37.2-46.3) % Plt Count (140-440) 10*3/uL MPV (9.5-12.2) fL Immature Gran # (0.00-0.04) 10*3/uL Neutrophils # (1.80-7.70) 10*3/uL Eosinophils # (0.04-0.35) 10*3/uL ESR (0-30) mm/Hr Sodium (137-145) mmol/L Potassium (3.5-5.1) mmol/L Chloride (98-107) mmol/L Creatinine (0.52-1.04) mg/dL Glucose (74-99) mg/dL POC Glucose (mg/dL) 335 H (70-110) mg/dL Plasma Lactic Acid Neal (0.7-2.0) mmol/L Total Bilirubin (0.2-1.3) mg/dL ALT (4-34) U/L Alkaline Phosphatase (38-126) U/L C-Reactive Protein (<1.0) mg/dL Total Protein (6.3-8.2) g/dL Albumin (3.5-5.0) g/dL Ur Specific [place] 1.037 H (1.001-1.035) Urine Glucose (UA) 4+ H (Negative) Urine Ketones 1+ H (Negative) Urine Blood Small H (Negative) Urine Nitrite Positive H (Negative) Urine Mucus Rare H (None) /hpf Ur Amphetamines Screen Detected H (NotDetected) U Methamphetamines Scrn Detected H (NotDetected) 02/06/25 02/06/25 02/06/25 Range/Units 07:16 07:16 07:42 WBC 13.48 H (4.50-10.00) 10*3/uL RBC (4.10-5.20) 10*6/uL Hgb (12.0-15.0) g/dL Hct 36.6 L (37.2-46.3) % Plt Count (140-440) 10*3/uL MPV 9.4 L (9.5-12.2) fL Immature Gran # 0.09 H (0.00-0.04) 10*3/uL Neutrophils # 11.35 H (1.80-7.70) 10*3/uL Eosinophils # (0.04-0.35) 10*3/uL ESR (0-30) mm/Hr Sodium 129 L (137-145) mmol/L Potassium 3.3 L (3.5-5.1) mmol/L Chloride 97 L (98-107) mmol/L Creatinine 0.26 L (0.52-1.04) mg/dL Glucose 288 H (74-99) mg/dL POC Glucose (mg/dL) 319 H (70-110) mg/dL Plasma Lactic Acid Neal (0.7-2.0) mmol/L Total Bilirubin (0.2-1.3) mg/dL ALT (4-34) U/L Alkaline Phosphatase 199 H (38-126) U/L C-Reactive Protein (<1.0) mg/dL Total Protein 6.1 L (6.3-8.2) g/dL Albumin 2.7 L (3.5-5.0) g/dL Ur Specific [place] (1.001-1.035) Urine Glucose (UA) (Negative) Urine Ketones (Negative) Urine Blood (Negative) Urine Nitrite (Negative) Urine Mucus (None) /hpf Ur Amphetamines Screen (NotDetected) U Methamphetamines Scrn (NotDetected)
[2025-02-06 15:18] LABS: Hepatitis A Antibody IgM Nonreactive (Nonreactive); Hepatitis B Core IgM Nonreactive (Nonreactive); Hepatitis B Surface Antigen Nonreactive (Nonreactive); Hepatitis C IgG Antibody Reactive (Nonreactive)
[2025-02-06] MEDS: CEFEPIME 2 GM in SODIUM CHLORIDE 0.9% 100 ML IVPB SCH (15:33)
[2025-02-06 16:56] LABS: Glucose,Whole Blood 311 mg/dL (70-110)
[2025-02-06] MEDS: INSULIN GLARGINE (LANTUS) 100 UNIT/ML SYR SQ SCH (21:10)
[2025-02-06 21:11] LABS: Glucose,Whole Blood >600 mg/dL (70-110)
[2025-02-06] MEDS: NICOTINE 21MG/24HR PATCH TRANSDERM SCH (21:16)
--- NOTE | 2025-02-06 22:41 | P.CONS ---
History of Present Illness - Reason for Consult Consult date: 02/06/25 Left upper extremity cellulitis Requesting physician: Yenni Mathews - Chief Complaint Left arm pain and swelling x 1 week - History of Present Illness Patient is a 54-year-old female with a past medical history significant for diabetes mellitus smoking and IV drug use presenting the hospital with left antecubital fossa area pain swelling redness that apparently has been going on for about a week in this patient who did have a last IV drug use in the same location a day or 2 before symptoms started patient complaining of increasing pain and swelling to the left arm described the pain to be sharp moderate to severe in intensity with associated swelling redness and did have some drainage on presentation to the hospital patient was afebrile did have low-grade fever 100 F this morning patient was tachycardic but not hypotensive or hypoxic she did have a white count of 13.48 with a left shift creatinine 0.26 liver enzymes are normal hepatitis C IgG positive HIV testing negative cultures are currently pending patient did have a left upper extremity CT which shows 4.9 X3.8X 7 cm loculated fluid collection concerning for an abscess patient was started on vancomycin Rocephin and Flagyl infectious disease was consulted for further management of antibiotic therapy Review of Systems Positive point and negatives has been mentioned in the HPI, complete review of systems was performed and all other systems are negative Past Medical History Past Medical History: Diabetes Mellitus Additional Past Surgical History / Comment(s): lung surgery Smoking Status: Current every day smoker Past Alcohol Use History: None Reported Past Drug Use History: Methamphetamine Medications and Allergies Home Medications Medication Instructions Recorded Confirmed Type Insulin Glargine,Hum.rec.anlog 15 - 20 units SQ HS 02/06/25 02/06/25 History [Lantus Solostar Pen] Allergies Allergy/AdvReac Type Severity Reaction Status Date / Time Sulfa (Sulfonamide Allergy Itching Verified 02/06/25 04:54 Antibiotics) Physical Exam Vitals: Vital Signs Temp Pulse Resp BP Pulse Ox 02/06/25 09:16 100 F H 81 17 147/87 97 02/06/25 05:16 109 H 18 153/86 99 02/06/25 03:03 108 H 18 140/86 98 02/05/25 23:10 98.3 F 114 H 19 138/78 99 02/05/25 21:25 98.7 F 126 H 19 155/92 100 02/05/25 19:07 140 H 142/106 99 02/05/25 18:58 98.0 F 140 H 17 164/103 98 Intake and Output 02/05/25 02/06/25 02/06/25 22:59 06:59 14:59 Other: Weight 54.431 kg GENERAL DESCRIPTION: Middle-age female lying in bed, no distress. No tachypnea or accessory muscle of respiration use. HEENT: Shows Pallor , no scleral icterus. Oral mucous membrane is dry. NECK: Trachea central, no thyromegaly. LUNGS: Unlabored breathing. Clear to auscultation anteriorly. No wheeze or crackle. HEART: S1, S2, regular rate and rhythm. No loud murmur ABDOMEN: Soft, no tenderness , guarding or rigidity, no organomegaly EXTREMITIES: Left upper extremity with extensive swelling and redness especially at the antecubital fossa with some drainage SKIN: No rash, no masses palpable. NEUROLOGICAL: The patient is awake, alert, oriented x3, mood and affect normal. Results CBC & Chem 7: 02/06/25 07:16 02/06/25 07:16 Labs: Abnormal Lab Results - Last 24 Hours (Table) 02/05/25 02/05/25 02/05/25 Range/Units 19:18 19:18 19:18 WBC 16.97 H (4.50-10.00) 10*3/uL RBC 5.79 H (4.10-5.20) 10*6/uL Hgb 16.1 H (12.0-15.0) g/dL Hct 47.5 H (37.2-46.3) % Plt Count 462 H (140-440) 10*3/uL MPV 9.3 L (9.5-12.2) fL Immature Gran # 0.12 H (0.00-0.04) 10*3/uL Neutrophils # 14.31 H (1.80-7.70) 10*3/uL Eosinophils # 0.02 L (0.04-0.35) 10*3/uL ESR >130 H (0-30) mm/Hr Sodium 128 L (137-145) mmol/L Potassium (3.5-5.1) mmol/L Chloride 85 L (98-107) mmol/L Creatinine 0.33 L (0.52-1.04) mg/dL Glucose 508 H* (74-99) mg/dL POC Glucose (mg/dL) (70-110) mg/dL Plasma Lactic Acid Neal 2.2 H* (0.7-2.0) mmol/L Total Bilirubin 1.4 H (0.2-1.3) mg/dL ALT 38 H (4-34) U/L Alkaline Phosphatase 337 H (38-126) U/L C-Reactive Protein 26.3 H (<1.0) mg/dL Total Protein 9.6 H (6.3-8.2) g/dL Albumin (3.5-5.0) g/dL Ur Specific [place] (1.001-1.035) Urine Glucose (UA) (Negative) Urine Ketones (Negative) Urine Blood (Negative) Urine Nitrite (Negative) Urine Mucus (None) /hpf Ur Amphetamines Screen (NotDetected) U Methamphetamines Scrn (NotDetected) 02/05/25 02/05/25 02/05/25 Range/Units 19:22 19:22 23:22 WBC (4.50-10.00) 10*3/uL RBC (4.10-5.20) 10*6/uL Hgb (12.0-15.0) g/dL Hct (37.2-46.3) % Plt Count (140-440) 10*3/uL MPV (9.5-12.2) fL Immature Gran # (0.00-0.04) 10*3/uL Neutrophils # (1.80-7.70) 10*3/uL Eosinophils # (0.04-0.35) 10*3/uL ESR (0-30) mm/Hr Sodium (137-145) mmol/L Potassium (3.5-5.1) mmol/L Chloride (98-107) mmol/L Creatinine (0.52-1.04) mg/dL Glucose (74-99) mg/dL POC Glucose (mg/dL) 335 H (70-110) mg/dL Plasma Lactic Acid Neal (0.7-2.0) mmol/L Total Bilirubin (0.2-1.3) mg/dL ALT (4-34) U/L Alkaline Phosphatase (38-126) U/L C-Reactive Protein (<1.0) mg/dL Total Protein (6.3-8.2) g/dL Albumin (3.5-5.0) g/dL Ur Specific [place] 1.037 H (1.001-1.035) Urine Glucose (UA) 4+ H (Negative) Urine Ketones 1+ H (Negative) Urine Blood Small H (Negative) Urine Nitrite Positive H (Negative) Urine Mucus Rare H (None) /hpf Ur Amphetamines Screen Detected H (NotDetected) U Methamphetamines Scrn Detected H (NotDetected) 02/06/25 02/06/25 02/06/25 Range/Units 07:16 07:16 07:42 WBC 13.48 H (4.50-10.00) 10*3/uL RBC (4.10-5.20) 10*6/uL Hgb (12.0-15.0) g/dL Hct 36.6 L (37.2-46.3) % Plt Count (140-440) 10*3/uL MPV 9.4 L (9.5-12.2) fL Immature Gran # 0.09 H (0.00-0.04) 10*3/uL Neutrophils # 11.35 H (1.80-7.70) 10*3/uL Eosinophils # (0.04-0.35) 10*3/uL ESR (0-30) mm/Hr Sodium 129 L (137-145) mmol/L Potassium 3.3 L (3.5-5.1) mmol/L Chloride 97 L (98-107) mmol/L Creatinine 0.26 L (0.52-1.04) mg/dL Glucose 288 H (74-99) mg/dL POC Glucose (mg/dL) 319 H (70-110) mg/dL Plasma Lactic Acid Neal (0.7-2.0) mmol/L Total Bilirubin (0.2-1.3) mg/dL ALT (4-34) U/L Alkaline Phosphatase 199 H (38-126) U/L C-Reactive Protein (<1.0) mg/dL Total Protein 6.1 L (6.3-8.2) g/dL Albumin 2.7 L (3.5-5.0) g/dL Ur Specific [place] (1.001-1.035) Urine Glucose (UA) (Negative) Urine Ketones (Negative) Urine Blood (Negative) Urine Nitrite (Negative) Urine Mucus (None) /hpf Ur Amphetamines Screen (NotDetected) U Methamphetamines Scrn (NotDetected) Assessment and Plan (1) Abscess of left arm Current Visit: Yes Status: Acute Code(s): L02.414 - CUTANEOUS ABSCESS OF LEFT UPPER LIMB SNOMED Code(s): 94820995115246120 (2) Allergy to sulfa drugs Current Visit: Yes Status: Acute Code(s): Z88.2 - ALLERGY STATUS TO SULFONAMIDES SNOMED Code(s): 44663346 (3) IVDU (intravenous drug user) Current Visit: Yes Status: Acute Code(s): F19.90 - OTHER PSYCHOACTIVE SUBSTANCE USE, UNSPECIFIED, UNCOMPLICATED SNOMED Code(s): 754109811 (4) Left arm cellulitis Current Visit: Yes Status: Acute Code(s): L03.114 - CELLULITIS OF LEFT UPPER LIMB SNOMED Code(s): 36014498981904936 (5) Sepsis Current Visit: Yes Status: Acute Code(s): A41.9 - SEPSIS, UNSPECIFIED ORGANISM SNOMED Code(s): 79744878 Plan: 1patient presenting to the hospital with sepsis in this patient who did have fever tachycardia elevated white count meeting criteria for SIRS/sepsis source is left antecubital fossa abscess from injection/IV drug use and will need to cover for resistant gram-positive as well as gram-negative pathogen 2-await surgical drainage and deep culture 3-patient will be treated with vancomycin pharmacy to dose however switch Rocephin and Flagyl to cefepime 2 g every 8 hours while waiting for the workup to be completed We will follow on clinical condition and cultures to further adjust medication if needed Thank you for this consultation we will follow the patient along with you Dictation was produced using [employer] dictation software. please excuse any grammatical, word or spelling errors. Time with Patient: Greater than 30
[2025-02-06] MEDS: INSULIN GLARGINE (LANTUS) 100 UNIT/ML SYR SQ STA (22:43)
[2025-02-06 22:48] LABS: Glucose,Whole Blood 390 mg/dL (70-110)
[2025-02-07 02:08] LABS: Glucose,Whole Blood 315 mg/dL (70-110)
[2025-02-07] MEDS: MORPHINE SULFATE 2 MG/ML SYRINGE IVP PRN (02:35)
[2025-02-07 05:27] LABS: Basophils # (A) 0.03 10*3/uL (0.00-0.10); Basophils % (A) 0.3 %; Eosinophils # (A) 0.13 10*3/uL (0.04-0.35); Eosinophils % (A) 1.4 %; HCT 32.9 % (37.2-46.3); HGB 11.3 g/dL (12.0-15.0); Lymphocytes # (A) 2.31 10*3/uL (0.90-5.00); Lymphocytes % (A) 25.2 %; MCH 28.3 pg (27.0-32.0); MCHC 34.3 g/dL (32.0-37.0); MCV 82.3 fL (80.0-97.0); Mean Platelet Volume 9.4 fL (9.5-12.2); Monocytes # (A) 0.62 10*3/uL (0.20-1.00); Monocytes % (A) 6.8 %; Neutrophils # (A) 5.97 10*3/uL (1.80-7.70); Platelet Count 295 10*3/uL (140-440); RDW 11.8 % (11.5-14.5); WBC 9.18 10*3/uL (4.50-10.00)
[2025-02-07] MEDS: VANCOMYCIN TROUGH DUE 1 EACH MISC MISCELLANE ONE (05:30)
[2025-02-07] MEDS: KETOROLAC 15 MG/ML 1 ML VIAL IVP PRN (05:40)
[2025-02-07 05:56] LABS: Glucose,Whole Blood 363 mg/dL (70-110)
[2025-02-07 05:58] LABS: ALT 19 U/L (4-34); AST 20 U/L (14-36); African American GFR (CKD) >90 (>60 ml/min/1.73 sqM); Albumin 2.4 g/dL (3.5-5.0); Albumin/Globulin Ratio 0.8; Alkaline Phosphatase 166 U/L (38-126); Anion Gap 8 mmol/L; Blood Urea Nitrogen 15 mg/dL (7-17); Calcium 8.6 mg/dL (8.4-10.2); Carbon Dioxide 27 mmol/L (22-30); Chloride 95 mmol/L (98-107); Globulin 3.1 g/dL; Glucose 361 mg/dL (74-99); Non-African American GFR(CKD) >90 (>60 ml/min/1.73 sqM); Potassium 3.7 mmol/L (3.5-5.1); Sodium 130 mmol/L (137-145); Total Bilirubin 0.4 mg/dL (0.2-1.3); Total Protein 5.5 g/dL (6.3-8.2)
--- NOTE | 2025-02-07 08:29 | P.PN ---
Progress Note - Text Progress Note Date: 02/07/25 No acute events overnight. Pain is controlled. Denies fevers and chills PHYSICAL EXAM: VITAL SIGNS: Reviewed GENERAL: Well-developed in no acute distress. Extremities: Left arm antecubital fossa dressing C/D/I NEUROLOGIC: Alert and oriented. Cranial nerves II through XII grossly intact. ASSESSMENT: 1. Left antecubital fossa abscess due to IV drug use s/p Incision and Drainage 2. Diabetes mellitus with elevated blood sugars PLAN: - Nursing to pull half packing today - Continue antibiotics - Regular Diet - Continue pain management Yannick Julio DO [facility] [phone]
[2025-02-07 11:21] LABS: Glucose,Whole Blood 342 mg/dL (70-110)
[2025-02-07] MEDS: INSULIN LISPRO (HumaLOG) 100 UNIT/ML 10 mL VL SQ SCH ×2 (12:57→12:58)
[2025-02-07] MEDS: VANCOMYCIN 1,250 MG in SODIUM CHLORIDE 0.9% 250 ML IVPB SCH (13:54)
--- NOTE | 2025-02-07 14:16 | P.PN ---
Subjective Progress Note Date: 02/07/25 Patient is a 54-year-old female with PMH of diabetes mellitus and regular IV drug use who presents to the emergency department with left upper extremity pain and swelling. She states that the pain began 2 days ago when she noticed increasing pain and swelling radiating down her left arm. She is an IV drug user and reports last injecting meth into her left arm approximately 1 week prior. States she noticed it almost immediately and it has progressively worsened. She denies fever, nausea, vomiting. She does state that she has had previous abscesses from injecting herself in the past, however notes none have been this severe. Believes her last abscess was approximately 2 years prior.WB Cs at 16.97, hemoglobin 16.1, sodium 128, potassium 5.0, chloride 85, bicarb 25, BUN 10, creatinine 0.33, lactic acid 2.2, calcium 9.8, total bilirubin 1.4, AST 33, ALT 38, alkaline phosphatase 337, CRP 26.3. Urine toxicology screen positive for methamphetamines as well as amphetamines. CT scan of the left upper extremity showed abscess in the antecubital fossa measuring approximately 4.9 x 3.8 x 7.0 cm consisting of loculated fluid and multiple foci of air. Patient was admitted for management of sepsis secondary to abscess, started on vancomycin, Rocephin, Flagyl, ID consulted, general surgery consulted, HIV, hepatitis and syphilis screening ordered. 02/06: Patient was seen and examined in the ER, complains of ongoing left arm pain, otherwise denies any complaints at this time. Surgery planning for bedside I&D. WBC trending down to 13.4, corrected sodium 132, potassium 3.3, blood glucose is not controlled, added basal bolus regimen with Lantus. 10, mealtime 3. ID switched antibiotics to vancomycin and cefepime. 02/07: GEN surgery performed I&D 02/06, no acute events overnight, WBC count normal, hemoglobin 11.3, blood glucose is not under control, Lantus increased to 25, mealtime 7, moderate intensity SSI, A1c 14.0 Pertinent positives and negatives as discussed in HPI, a complete review of systems was performed and all other systems are negative. Patient seen and examined at bedside. Vital signs reviewed General: nontoxic, no distress, appears at stated age Derm: warm, dry Head: atraumatic, normocephalic, symmetric Eyes: EOMI, no lid lag, anicteric sclera, pupils equal round reactive to light ENT: Nose and ears atraumatic Neck: No thyromegaly, supple Mouth: no lip lesion, mucus membranes moist Cardiovascular: S1S2 reg, no murmur, no edema Lungs: clear to auscultation bilateral, no rhonchi, no rales, no wheeze, no accessory muscle use Abdominal: soft, nontender to palpation, no guarding, no appreciable organomegaly Ext: no gross muscle atrophy, muscle strength muscle strength 5 out of 5 in all 4 extremities, no contractures, LUE edema extending to the wrist and up to mid- way up the upper arm. Noted erythema on the left arm around the antecubital phani a. Dressing Neuro: CN II-XII grossly intact Psych: Alert, oriented, appropriate affect Assessment/Plan: Sepsis secondary to left upper extremity cellulitis, abscess s/p I&D 02/06 Lactic acidosis secondary to above, resolved -ID consulted, appreciate recommendations, antibiotics switched to vancomycin pharmacy to dose and cefepime 2 g every 8 hours, will monitor BMP daily for renal toxicity -Wound cultures growing MRSA, preliminary blood cultures -Continue IV fluids at 130 cc/h with LR -General Surgery consulted - Monitor CBC daily - HIV nonreactive -Social work consulted Hepatitis C IgG positive Type II DM - A1c pending - blood glucose is not under control, Lantus increased to 25, mealtime 7, moderate intensity SSI, A1c 14.0, continue Accu-Cheks and hypoglycemia precautions Polycythemia Thrombocytosis -Continue IV hydration, monitor daily CBC IV drug use Hepatitis C IgG positive -Social work consulted -HIV negative, syphilis negative -Check viral load hepatitis C CODE STATUS: Full DVT prophylaxis: Lovenox Anticipated discharge date: TBD Anticipated discharge place: TBD Objective - Vital Signs Vital signs: Vital Signs Temp 98.6 F 02/07/25 13:45 Pulse 104 H 02/07/25 13:45 Resp 16 02/07/25 13:45 BP 138/85 02/07/25 13:45 Pulse Ox 99 02/07/25 13:45 FiO2 Intake & Output 02/06/25 02/07/25 02/07/25 18:59 06:59 18:59 Intake Total 600 Balance 600 Weight 54.431 kg Intake: Oral 600 Other: # Voids 2 - Labs CBC & Chem 7: 05/24/25 05:15 02/07/25 05:15 Labs: Abnormal Lab Results - Last 24 Hours (Table) 02/06/25 02/06/25 02/06/25 Range/Units 07:16 16:54 21:09 RBC (4.10-5.20) 10*6/uL Hgb (12.0-15.0) g/dL Hct (37.2-46.3) % MPV (9.5-12.2) fL Immature Gran # (0.00-0.04) 10*3/uL Sodium (137-145) mmol/L Chloride (98-107) mmol/L Creatinine (0.52-1.04) mg/dL Glucose (74-99) mg/dL POC Glucose (mg/dL) 311 H >600 H* (70-110) mg/dL Hemoglobin A1c (<=6.0) % Alkaline Phosphatase (38-126) U/L Total Protein (6.3-8.2) g/dL Albumin (3.5-5.0) g/dL Hep C IgG Ab Reactive A (Nonreactive) 02/06/25 02/07/25 02/07/25 Range/Units 22:47 02:07 05:15 RBC 4.00 L (4.10-5.20) 10*6/uL Hgb 11.3 L (12.0-15.0) g/dL Hct 32.9 L (37.2-46.3) % MPV 9.4 L (9.5-12.2) fL Immature Gran # 0.12 H (0.00-0.04) 10*3/uL Sodium (137-145) mmol/L Chloride (98-107) mmol/L Creatinine (0.52-1.04) mg/dL Glucose (74-99) mg/dL POC Glucose (mg/dL) 390 H 315 H (70-110) mg/dL Hemoglobin A1c (<=6.0) % Alkaline Phosphatase (38-126) U/L Total Protein (6.3-8.2) g/dL Albumin (3.5-5.0) g/dL Hep C IgG Ab (Nonreactive) 02/07/25 02/07/25 02/07/25 Range/Units 05:15 05:54 07:48 RBC (4.10-5.20) 10*6/uL Hgb (12.0-15.0) g/dL Hct (37.2-46.3) % MPV (9.5-12.2) fL Immature Gran # (0.00-0.04) 10*3/uL Sodium 130 L (137-145) mmol/L Chloride 95 L (98-107) mmol/L Creatinine 0.32 L (0.52-1.04) mg/dL Glucose 361 H (74-99) mg/dL POC Glucose (mg/dL) 363 H (70-110) mg/dL Hemoglobin A1c 14.0 H (<=6.0) % Alkaline Phosphatase 166 H (38-126) U/L Total Protein 5.5 L (6.3-8.2) g/dL Albumin 2.4 L (3.5-5.0) g/dL Hep C IgG Ab (Nonreactive) 02/07/25 Range/Units 11:19 RBC (4.10-5.20) 10*6/uL Hgb (12.0-15.0) g/dL Hct (37.2-46.3) % MPV (9.5-12.2) fL Immature Gran # (0.00-0.04) 10*3/uL Sodium (137-145) mmol/L Chloride (98-107) mmol/L Creatinine (0.52-1.04) mg/dL Glucose (74-99) mg/dL POC Glucose (mg/dL) 342 H (70-110) mg/dL Hemoglobin A1c (<=6.0) % Alkaline Phosphatase (38-126) U/L Total Protein (6.3-8.2) g/dL Albumin (3.5-5.0) g/dL Hep C IgG Ab (Nonreactive) Microbiology - Last 24 Hours (Table) 02/06/25 00:22 Blood Culture - Preliminary Blood 02/05/25 19:22 Urine Culture - Preliminary Urine,Clean Catch 02/06/25 05:32 Gram Stain - Preliminary Arm - Left Wound Culture - Preliminary Presumptive MRSA
--- NOTE | 2025-02-07 16:10 | P.PN ---
Subjective Progress Note Date: 02/07/25 Principal diagnosis: Reason for follow-up is left upper arm abscess Patient is a 54-year-old female with a past medical history significant for diabetes mellitus smoking and IV drug use presenting the hospital with left antecubital fossa area pain swelling redness has been diagnosed with a left antecubital fossa abscess prompting this consultation. On today's evaluation that is 02/07/2025,the patient remains to be afebrile, patient is on room air not requiring supplemental oxygen and denies any shortness of breath no chest pain or cough.Patient denies having any nausea or vomiting, no abdominal pain and no diarrhea pain to the left upper extremity slightly decreased. Patient white count normalized to 9.18, creatinine 0.32 no culture present MRSA Objective - Vital Signs Vital signs: Vital Signs Temp 98.6 F 02/07/25 13:45 Pulse 104 H 02/07/25 13:45 Resp 16 02/07/25 13:45 BP 138/85 02/07/25 13:45 Pulse Ox 99 02/07/25 13:45 FiO2 Intake & Output 02/06/25 02/07/25 02/07/25 18:59 06:59 18:59 Intake Total 600 Balance 600 Weight 54.431 kg Intake: Oral 600 Other: # Voids 2 - Exam GENERAL DESCRIPTION: Middle-age female lying in bed in no distress RESPIRATORY SYSTEM: Unlabored breathing , decreased breath sounds at bases HEART: S1 S2 regular rate and rhythm , ABDOMEN: Soft , no tenderness EXTREMITIES: Left upper extremity is currently dressed - Labs CBC & Chem 7: 02/07/25 05:15 02/07/25 05:15 Labs: Abnormal Lab Results - Last 24 Hours (Table) 02/06/25 02/06/25 02/06/25 Range/Units 16:54 21:09 22:47 RBC (4.10-5.20) 10*6/uL Hgb (12.0-15.0) g/dL Hct (37.2-46.3) % MPV (9.5-12.2) fL Immature Gran # (0.00-0.04) 10*3/uL Sodium (137-145) mmol/L Chloride (98-107) mmol/L Creatinine (0.52-1.04) mg/dL Glucose (74-99) mg/dL POC Glucose (mg/dL) 311 H >600 H* 390 H (70-110) mg/dL Hemoglobin A1c (<=6.0) % Alkaline Phosphatase (38-126) U/L Total Protein (6.3-8.2) g/dL Albumin (3.5-5.0) g/dL 02/07/25 02/07/25 02/07/25 Range/Units 02:07 05:15 05:15 RBC 4.00 L (4.10-5.20) 10*6/uL Hgb 11.3 L (12.0-15.0) g/dL Hct 32.9 L (37.2-46.3) % MPV 9.4 L (9.5-12.2) fL Immature Gran # 0.12 H (0.00-0.04) 10*3/uL Sodium 130 L (137-145) mmol/L Chloride 95 L (98-107) mmol/L Creatinine 0.32 L (0.52-1.04) mg/dL Glucose 361 H (74-99) mg/dL POC Glucose (mg/dL) 315 H (70-110) mg/dL Hemoglobin A1c (<=6.0) % Alkaline Phosphatase 166 H (38-126) U/L Total Protein 5.5 L (6.3-8.2) g/dL Albumin 2.4 L (3.5-5.0) g/dL 02/07/25 02/07/25 02/07/25 Range/Units 05:54 07:48 11:19 RBC (4.10-5.20) 10*6/uL Hgb (12.0-15.0) g/dL Hct (37.2-46.3) % MPV (9.5-12.2) fL Immature Gran # (0.00-0.04) 10*3/uL Sodium (137-145) mmol/L Chloride (98-107) mmol/L Creatinine (0.52-1.04) mg/dL Glucose (74-99) mg/dL POC Glucose (mg/dL) 363 H 342 H (70-110) mg/dL Hemoglobin A1c 14.0 H (<=6.0) % Alkaline Phosphatase (38-126) U/L Total Protein (6.3-8.2) g/dL Albumin (3.5-5.0) g/dL Microbiology - Last 24 Hours (Table) 02/06/25 00:22 Blood Culture - Preliminary Blood 02/05/25 19:22 Urine Culture - Preliminary Urine,Clean Catch 02/06/25 05:32 Gram Stain - Preliminary Arm - Left Wound Culture - Preliminary Presumptive MRSA Assessment and Plan (1) Abscess of left arm Current Visit: Yes Status: Acute Code(s): L02.414 - CUTANEOUS ABSCESS OF LEFT UPPER LIMB SNOMED Code(s): 82909276671194960 (2) Allergy to sulfa drugs Current Visit: Yes Status: Acute Code(s): Z88.2 - ALLERGY STATUS TO SULFONAMIDES SNOMED Code(s): 19179320 (3) IVDU (intravenous drug user) Current Visit: Yes Status: Acute Code(s): F19.90 - OTHER PSYCHOACTIVE SUBSTANCE USE, UNSPECIFIED, UNCOMPLICATED SNOMED Code(s): 155471957 (4) Left arm cellulitis Current Visit: Yes Status: Acute Code(s): L03.114 - CELLULITIS OF LEFT UPPER LIMB SNOMED Code(s): 80657568112673418 (5) Sepsis Current Visit: Yes Status: Acute Code(s): A41.9 - SEPSIS, UNSPECIFIED ORGANISM SNOMED Code(s): 25221830 Plan: 1patient presenting to the hospital with sepsis in this patient who did have fever tachycardia elevated white count meeting criteria for SIRS/sepsis source is left antecubital fossa abscess from injection/IV drug use and will need to cover for resistant gram-positive as well as gram-negative pathogen 2-blood culture pending local culture currently growing present MRSA 3-patient will be treated with vancomycin pharmacy to dose however discontinue cefepime Dictation was produced using [employer] dictation software. please excuse any grammatical, word or spelling errors. Time with Patient: Less than 30
[2025-02-07 16:18] LABS: Glucose,Whole Blood 209 mg/dL (70-110)
[2025-02-07 21:04] LABS: Glucose,Whole Blood 281 mg/dL (70-110)
[2025-02-07] MEDS: INSULIN GLARGINE (LANTUS) 100 UNIT/ML SYR SQ SCH (21:26)
[2025-02-08 06:14] LABS: Glucose,Whole Blood 335 mg/dL (70-110)
[2025-02-08 07:56] LABS: Basophils # (A) 0.06 10*3/uL (0.00-0.10); Basophils % (A) 0.8 %; Eosinophils # (A) 0.17 10*3/uL (0.04-0.35); Eosinophils % (A) 2.3 %; HGB 11.3 g/dL (12.0-15.0); Lymphocytes # (A) 2.14 10*3/uL (0.90-5.00); Lymphocytes % (A) 29.2 %; MCH 28.5 pg (27.0-32.0); MCHC 33.2 g/dL (32.0-37.0); MCV 85.9 fL (80.0-97.0); Mean Platelet Volume 9.4 fL (9.5-12.2); Monocytes # (A) 0.49 10*3/uL (0.20-1.00); Monocytes % (A) 6.7 %; Neutrophils # (A) 4.27 10*3/uL (1.80-7.70); Neutrophils % (A) 58.1 %; Platelet Count 369 10*3/uL (140-440); RBC 3.96 10*6/uL (4.10-5.20); RDW 11.9 % (11.5-14.5); WBC 7.34 10*3/uL (4.50-10.00)
[2025-02-08 08:17] LABS: ALT 15 U/L (4-34); AST 14 U/L (14-36); African American GFR (CKD) >90 (>60 ml/min/1.73 sqM); Albumin 2.3 g/dL (3.5-5.0); Albumin/Globulin Ratio 0.8; Alkaline Phosphatase 142 U/L (38-126); Anion Gap 5 mmol/L; Blood Urea Nitrogen 11 mg/dL (7-17); Calcium 8.1 mg/dL (8.4-10.2); Carbon Dioxide 26 mmol/L (22-30); Chloride 104 mmol/L (98-107); Globulin 2.9 g/dL; Glucose 243 mg/dL (74-99); Non-African American GFR(CKD) >90 (>60 ml/min/1.73 sqM); Potassium 3.1 mmol/L (3.5-5.1); Sodium 135 mmol/L (137-145); Total Bilirubin 0.1 mg/dL (0.2-1.3); Total Protein 5.2 g/dL (6.3-8.2)
--- NOTE | 2025-02-08 08:52 | P.PN ---
Subjective Progress Note Date: 02/08/25 Patient seen and examined at bedside. Eating breakfast. Continues to have drainage from left upper extremity site. Pain much improved. Edema much improved. Objective - Vital Signs Vital signs: Vital Signs Temp 98.6 F 02/08/25 07:27 Pulse 98 02/08/25 07:27 Resp 16 02/08/25 07:27 BP 127/80 02/08/25 07:27 Pulse Ox 98 02/08/25 07:27 FiO2 Intake & Output 02/07/25 02/08/25 02/08/25 18:59 06:59 18:59 Other: Voiding Method Toilet # Voids 5 # Bowel Movements 1 - Constitutional General appearance: Present: cooperative - Integumentary Integumentary Comment(s): Left upper extremity incision site clean with minimal purulent drainage, left upper extremity edema improving - Labs CBC & Chem 7: 02/08/25 07:31 02/08/25 07:31 Labs: Abnormal Lab Results - Last 24 Hours (Table) 02/07/25 02/07/25 02/07/25 Range/Units 07:48 11:19 16:17 RBC (4.10-5.20) 10*6/uL Hgb (12.0-15.0) g/dL Hct (37.2-46.3) % MPV (9.5-12.2) fL Immature Gran # (0.00-0.04) 10*3/uL Sodium (137-145) mmol/L Potassium (3.5-5.1) mmol/L Creatinine (0.52-1.04) mg/dL Glucose (74-99) mg/dL POC Glucose (mg/dL) 342 H 209 H (70-110) mg/dL Hemoglobin A1c 14.0 H (<=6.0) % Calcium (8.4-10.2) mg/dL Total Bilirubin (0.2-1.3) mg/dL Alkaline Phosphatase (38-126) U/L Total Protein (6.3-8.2) g/dL Albumin (3.5-5.0) g/dL 02/07/25 02/08/25 02/08/25 Range/Units 21:03 06:12 07:31 RBC 3.96 L (4.10-5.20) 10*6/uL Hgb 11.3 L (12.0-15.0) g/dL Hct 34.0 L (37.2-46.3) % MPV 9.4 L (9.5-12.2) fL Immature Gran # 0.21 H (0.00-0.04) 10*3/uL Sodium (137-145) mmol/L Potassium (3.5-5.1) mmol/L Creatinine (0.52-1.04) mg/dL Glucose (74-99) mg/dL POC Glucose (mg/dL) 281 H 335 H (70-110) mg/dL Hemoglobin A1c (<=6.0) % Calcium (8.4-10.2) mg/dL Total Bilirubin (0.2-1.3) mg/dL Alkaline Phosphatase (38-126) U/L Total Protein (6.3-8.2) g/dL Albumin (3.5-5.0) g/dL 02/08/25 Range/Units 07:31 RBC (4.10-5.20) 10*6/uL Hgb (12.0-15.0) g/dL Hct (37.2-46.3) % MPV (9.5-12.2) fL Immature Gran # (0.00-0.04) 10*3/uL Sodium 135 L (137-145) mmol/L Potassium 3.1 L (3.5-5.1) mmol/L Creatinine 0.33 L (0.52-1.04) mg/dL Glucose 243 H (74-99) mg/dL POC Glucose (mg/dL) (70-110) mg/dL Hemoglobin A1c (<=6.0) % Calcium 8.1 L (8.4-10.2) mg/dL Total Bilirubin 0.1 L (0.2-1.3) mg/dL Alkaline Phosphatase 142 H (38-126) U/L Total Protein 5.2 L (6.3-8.2) g/dL Albumin 2.3 L (3.5-5.0) g/dL Microbiology - Last 24 Hours (Table) 02/06/25 00:22 Blood Culture - Preliminary Blood 02/05/25 19:22 Urine Culture - Preliminary Urine,Clean Catch 02/06/25 05:32 Gram Stain - Preliminary Arm - Left Wound Culture - Preliminary Presumptive MRSA Assessment and Plan Plan: 54-year-old female status post I&D left upper extremity abscess in antecubital fossa. Continue packing changes. Continue local wound care. Continue IV antibiotics. Overall, clinically improving.
[2025-02-08 11:17] VITALS: BMI 21.9
[2025-02-08 11:23] LABS: Glucose,Whole Blood 137 mg/dL (70-110)
[2025-02-08] MEDS: POTASSIUM CHLORIDE ER 20 MEQ TAB.ER PO STA (12:13)
--- NOTE | 2025-02-08 14:31 | P.PN ---
Subjective Progress Note Date: 02/08/25 Subjective: Patient seen and examined at bedside. No acute events overnight. Pertinent positives and negatives as discussed above, a complete review of systems was performed and all other systems are negative. Vitals Signs Reviewed. General: Nontoxic, no distress, appears at stated age Derm: Warm, dry, left forearm covered in dressing Head: Atraumatic, normocephalic, symmetric Eyes: EOMI, no lid lag, anicteric sclera Mouth: No lip lesion, mucus membranes moist Cardiovascular: S1S2 reg, no murmur Lungs: CTA bilateral, no rhonchi, no rales, no accessory muscle use Abdominal: Soft, nontender to palpation, no guarding, no appreciable organomegaly Ext: No gross muscle atrophy, no edema, no contractures Neuro: CN II-XI grossly intact, no focal neuro deficits Psych: Alert, oriented, appropriate affect Data Reviewed Today: Pertinent Labs: WBC 7.34, hemoglobin 11.3, potassium 3.1, creatinine 0.83, blood sugars range between 137-243 Imaging: No new imaging Assessment and Plan: Sepsis secondary to left upper extremity cellulitis, abscess s/p I&D 02/06 Lactic acidosis secondary to above, resolved -ID consulted, appreciate recommendations, continue IV vancomycin, monitor for renal toxicity -Wound cultures growing MRSA, preliminary blood cultures pending - DC fluids - Discussed with general surgery, changed dressing - Monitor CBC daily - HIV nonreactive -Social work consulted Type II DM - blood glucose is not under control, Lantus increased to 25, mealtime 7, moderate intensity SSI, A1c 14.0, monitor for hypoglycemia Polycythemia, resolved Thrombocytosis, resolved IV drug use Hepatitis C IgG positive -Social work consulted -HIV negative, syphilis negative -Check viral load hepatitis C DVT ppx: Lovenox Code status: Full code Anticipated discharge place: Pending clinical course Anticipated discharge time: Pending clinical course Objective - Vital Signs Vital signs: Vital Signs Temp 98.2 F 02/08/25 13:11 Pulse 108 H 02/08/25 13:11 Resp 15 02/08/25 13:11 BP 135/89 02/08/25 13:11 Pulse Ox 98 02/08/25 13:11 FiO2 Intake & Output 02/07/25 02/08/25 02/08/25 18:59 06:59 18:59 Weight 54.431 kg Other: Voiding Method Toilet # Voids 5 # Bowel Movements 1 - Labs CBC & Chem 7: 02/08/25 07:31 02/08/25 07:31 Labs: Abnormal Lab Results - Last 24 Hours (Table) 02/07/25 02/07/25 02/08/25 Range/Units 16:17 21:03 06:12 RBC (4.10-5.20) 10*6/uL Hgb (12.0-15.0) g/dL Hct (37.2-46.3) % MPV (9.5-12.2) fL Immature Gran # (0.00-0.04) 10*3/uL Sodium (137-145) mmol/L Potassium (3.5-5.1) mmol/L Creatinine (0.52-1.04) mg/dL Glucose (74-99) mg/dL POC Glucose (mg/dL) 209 H 281 H 335 H (70-110) mg/dL Calcium (8.4-10.2) mg/dL Total Bilirubin (0.2-1.3) mg/dL Alkaline Phosphatase (38-126) U/L Total Protein (6.3-8.2) g/dL Albumin (3.5-5.0) g/dL 02/08/25 02/08/25 02/08/25 Range/Units 07:31 07:31 11:22 RBC 3.96 L (4.10-5.20) 10*6/uL Hgb 11.3 L (12.0-15.0) g/dL Hct 34.0 L (37.2-46.3) % MPV 9.4 L (9.5-12.2) fL Immature Gran # 0.21 H (0.00-0.04) 10*3/uL Sodium 135 L (137-145) mmol/L Potassium 3.1 L (3.5-5.1) mmol/L Creatinine 0.33 L (0.52-1.04) mg/dL Glucose 243 H (74-99) mg/dL POC Glucose (mg/dL) 137 H (70-110) mg/dL Calcium 8.1 L (8.4-10.2) mg/dL Total Bilirubin 0.1 L (0.2-1.3) mg/dL Alkaline Phosphatase 142 H (38-126) U/L Total Protein 5.2 L (6.3-8.2) g/dL Albumin 2.3 L (3.5-5.0) g/dL Microbiology - Last 24 Hours (Table) 02/05/25 19:22 Urine Culture - Final Urine,Clean Catch Staphylococcus epidermidis 02/06/25 00:22 Blood Culture - Preliminary Blood 02/06/25 05:32 Gram Stain - Final Arm - Left Wound Culture - Final Methicillin resist S. aureus
--- NOTE | 2025-02-08 15:04 | P.PN ---
Subjective Progress Note Date: 02/08/25 Principal diagnosis: Reason for follow-up is left upper arm abscess Patient is a 54-year-old female with a past medical history significant for diabetes mellitus smoking and IV drug use presenting the hospital with left antecubital fossa area pain swelling redness has been diagnosed with a left antecubital fossa abscess prompting this consultation. On today's evaluation that is 02/08/2025, the patient continues to be afebrile, the patient is on room air and breathing comfortably, the Pt denies having any chest pain or cough, the patient denies having any abdominal pain no vomiting or any diarrhea, pain in the left upper extremity has decreased in intensity. The patient white count 7.34, creatinine 0.33 culture with MRSA blood culture have been negative so far Objective - Vital Signs Vital signs: Vital Signs Temp 98.2 F 02/08/25 13:11 Pulse 108 H 02/08/25 13:11 Resp 15 02/08/25 13:11 BP 135/89 02/08/25 13:11 Pulse Ox 98 02/08/25 13:11 FiO2 Intake & Output 02/07/25 02/08/25 02/08/25 18:59 06:59 18:59 Weight 54.431 kg Other: Voiding Method Toilet # Voids 5 # Bowel Movements 1 - Exam GENERAL DESCRIPTION: Middle-age female lying in bed in no distress RESPIRATORY SYSTEM: Unlabored breathing , decreased breath sounds at bases HEART: S1 S2 regular rate and rhythm , ABDOMEN: Soft , no tenderness EXTREMITIES: Left upper extremity is currently dressed - Labs CBC & Chem 7: 02/08/25 07:31 02/08/25 07:31 Labs: Abnormal Lab Results - Last 24 Hours (Table) 02/07/25 02/07/25 02/08/25 Range/Units 16:17 21:03 06:12 RBC (4.10-5.20) 10*6/uL Hgb (12.0-15.0) g/dL Hct (37.2-46.3) % MPV (9.5-12.2) fL Immature Gran # (0.00-0.04) 10*3/uL Sodium (137-145) mmol/L Potassium (3.5-5.1) mmol/L Creatinine (0.52-1.04) mg/dL Glucose (74-99) mg/dL POC Glucose (mg/dL) 209 H 281 H 335 H (70-110) mg/dL Calcium (8.4-10.2) mg/dL Total Bilirubin (0.2-1.3) mg/dL Alkaline Phosphatase (38-126) U/L Total Protein (6.3-8.2) g/dL Albumin (3.5-5.0) g/dL 02/08/25 02/08/25 02/08/25 Range/Units 07:31 07:31 11:22 RBC 3.96 L (4.10-5.20) 10*6/uL Hgb 11.3 L (12.0-15.0) g/dL Hct 34.0 L (37.2-46.3) % MPV 9.4 L (9.5-12.2) fL Immature Gran # 0.21 H (0.00-0.04) 10*3/uL Sodium 135 L (137-145) mmol/L Potassium 3.1 L (3.5-5.1) mmol/L Creatinine 0.33 L (0.52-1.04) mg/dL Glucose 243 H (74-99) mg/dL POC Glucose (mg/dL) 137 H (70-110) mg/dL Calcium 8.1 L (8.4-10.2) mg/dL Total Bilirubin 0.1 L (0.2-1.3) mg/dL Alkaline Phosphatase 142 H (38-126) U/L Total Protein 5.2 L (6.3-8.2) g/dL Albumin 2.3 L (3.5-5.0) g/dL Microbiology - Last 24 Hours (Table) 02/05/25 19:22 Urine Culture - Final Urine,Clean Catch Staphylococcus epidermidis 02/06/25 00:22 Blood Culture - Preliminary Blood 02/06/25 05:32 Gram Stain - Final Arm - Left Wound Culture - Final Methicillin resist S. aureus Assessment and Plan (1) Abscess of left arm Current Visit: Yes Status: Acute Code(s): L02.414 - CUTANEOUS ABSCESS OF LEFT UPPER LIMB SNOMED Code(s): 37038446921376204 (2) Allergy to sulfa drugs Current Visit: Yes Status: Acute Code(s): Z88.2 - ALLERGY STATUS TO SULFONAMIDES SNOMED Code(s): 72782447 (3) IVDU (intravenous drug user) Current Visit: Yes Status: Acute Code(s): F19.90 - OTHER PSYCHOACTIVE SUBSTANCE USE, UNSPECIFIED, UNCOMPLICATED SNOMED Code(s): 569812198 (4) Left arm cellulitis Current Visit: Yes Status: Acute Code(s): L03.114 - CELLULITIS OF LEFT UPPER LIMB SNOMED Code(s): 26030612459355125 (5) Sepsis Current Visit: Yes Status: Acute Code(s): A41.9 - SEPSIS, UNSPECIFIED ORGANISM SNOMED Code(s): 00817158 Plan: 1patient presenting to the hospital with sepsis in this patient who did have fever tachycardia elevated white count meeting criteria for SIRS/sepsis source is left antecubital fossa abscess from injection/IV drug use and will need to cover for resistant gram-positive as well as gram-negative pathogen 2-blood culture pending local culture currently growing MRSA blood culture have been negative so far 3-patient currently being treated with vancomycin pharmacy to dose will continue and monitor clinical course closely Dictation was produced using [employer] dictation software. please excuse any gramm atical, word or spelling errors. Time with Patient: Less than 30
[2025-02-08 16:12] LABS: Glucose,Whole Blood 492 mg/dL (70-110)
[2025-02-08 20:17] LABS: Glucose,Whole Blood 265 mg/dL (70-110)
[2025-02-09 06:07] LABS: Glucose,Whole Blood 441 mg/dL (70-110)
[2025-02-09] MEDS: VANCOMYCIN TROUGH DUE 1 EACH MISC MISCELLANE ONE (06:30)
[2025-02-09] MEDS: ENOXAPARIN 40 MG/0.4 ML SYRINGE SQ SCH (08:41)
[2025-02-09 09:22] LABS: Basophils # (A) 0.06 X 10*3/uL (0.00-0.10); Basophils % (A) 0.9 %; Eosinophils # (A) 0.15 X 10*3/uL (0.04-0.35); Eosinophils % (A) 2.2 %; HCT 35.9 % (37.2-46.3); HGB 11.2 g/dL (12.0-15.0); Lymphocytes # (A) 1.88 X 10*3/uL (0.90-5.00); Lymphocytes % (A) 27.8 %; MCH 27.3 pg (27.0-32.0); MCHC 31.2 g/dL (32.0-37.0); MCV 87.3 FL (80.0-97.0); Mean Platelet Volume 10.7 FL (9.5-12.2); Monocytes # (A) 0.46 X 10*3/uL (0.20-1.00); Monocytes % (A) 6.8 %; NRBC Per 100 WBC 0 X 10*3/uL (0.00-0.01); Neutrophils # (A) 4.04 X 10*3/uL (1.80-7.70); Neutrophils % (A) 59.6 %; Platelet Count 303 X 10*3/uL (140-440); RBC 4.11 X 10*6/uL (4.10-5.20); WBC 6.77 X 10*3/uL (4.50-10.00)
[2025-02-09 11:00] LABS: Magnesium 1.6 mg/dL (1.5-2.4)
[2025-02-09 11:10] LABS: Glucose,Whole Blood 298 mg/dL (70-110)
[2025-02-09 11:25] LABS: ALT 21 U/L (8-44); AST 34 U/L (13-35); Albumin 2.6 g/dL (3.8-4.9); Albumin/Globulin Ratio 0.87 Ratio (1.60-3.17); Alkaline Phosphatase 185 U/L (41-126); Blood Urea Nitrogen 12.7 mg/dL (9.0-27.0); Calcium 8.2 mg/dL (8.7-10.3); Carbon Dioxide 21.1 mmol/L (21.6-31.8); Chloride 101 mmol/L (96-109); Glucose 429 mg/dL (70-110); Potassium 4.2 mmol/L (3.5-5.5); Sodium 135 mmol/L (135-145); Total Bilirubin <0.2 mg/dL (0.3-1.2); Total Protein 5.6 g/dL (6.2-8.2)
[2025-02-09] MEDS: INSULIN LISPRO (HumaLOG) 100 UNIT/ML 10 mL VL SQ SCH (12:04)
--- NOTE | 2025-02-09 12:32 | P.PN ---
Subjective Patient seen and evaluated at bedside. Doing well, swelling/pain decreasing. Objective - Vital Signs Vital signs: Vital Signs Temp 98.6 F 02/09/25 07:23 Pulse 109 H 02/09/25 07:23 Resp 14 02/09/25 07:23 BP 169/96 02/09/25 07:23 Pulse Ox 98 02/09/25 07:23 FiO2 Intake & Output 02/08/25 02/09/25 02/09/25 18:59 06:59 18:59 Weight 54.431 kg Other: Voiding Method Toilet # Voids 5 - Exam gen: nad cv: rrr pul: non labored ext: left upper extremity demonstrates appropriately draining round - Labs CBC & Chem 7: 02/09/25 05:09 02/09/25 05:09 Labs: Abnormal Lab Results - Last 24 Hours (Table) 02/08/25 02/08/25 02/09/25 Range/Units 16:11 20:16 05:09 Hgb 11.2 L (12.0-15.0) g/dL Hct 35.9 L (37.2-46.3) % MCHC 31.2 L (32.0-37.0) g/dL Immature Gran # 0.18 H (0.00-0.04) X 10*3/uL Carbon Dioxide (21.6-31.8) mmol/L Anion Gap (4.00-12.00) mmol/L Creatinine (0.6-1.5) mg/dL BUN/Creatinine Ratio (12.00-20.00) Ratio Glucose (70-110) mg/dL POC Glucose (mg/dL) 492 H 265 H (70-110) mg/dL Calcium (8.7-10.3) mg/dL Total Bilirubin (0.3-1.2) mg/dL Alkaline Phosphatase (41-126) U/L Total Protein (6.2-8.2) g/dL Albumin (3.8-4.9) g/dL Albumin/Globulin Ratio (1.60-3.17) Ratio 02/09/25 02/09/25 02/09/25 Range/Units 05:09 06:05 11:09 Hgb (12.0-15.0) g/dL Hct (37.2-46.3) % MCHC (32.0-37.0) g/dL Immature Gran # (0.00-0.04) X 10*3/uL Carbon Dioxide 21.1 L (21.6-31.8) mmol/L Anion Gap 12.90 H (4.00-12.00) mmol/L Creatinine 0.5 L (0.6-1.5) mg/dL BUN/Creatinine Ratio 25.40 H (12.00-20.00) Ratio Glucose 429 H (70-110) mg/dL POC Glucose (mg/dL) 441 H 298 H (70-110) mg/dL Calcium 8.2 L (8.7-10.3) mg/dL Total Bilirubin <0.2 L (0.3-1.2) mg/dL Alkaline Phosphatase 185 H (41-126) U/L Total Protein 5.6 L (6.2-8.2) g/dL Albumin 2.6 L (3.8-4.9) g/dL Albumin/Globulin Ratio 0.87 L (1.60-3.17) Ratio Microbiology - Last 24 Hours (Table) 02/05/25 19:22 Urine Culture - Final Urine,Clean Catch Staphylococcus epidermidis 02/06/25 00:22 Blood Culture - Preliminary Blood 02/06/25 05:32 Gram Stain - Final Arm - Left Wound Culture - Final Methicillin resist S. aureus Assessment and Plan Assessment: s/p Incision and drainage removed about 200cc of purulent material ID following drainage appropriately discharge pending ID recommendations Time with Patient: Less than 30
--- NOTE | 2025-02-09 13:02 | P.OP ---
Date of Procedure: 02/06/25 Preoperative Diagnosis: Left forearm abscess Postoperative Diagnosis: Left forearm abscess Procedure(s) Performed: Sharp incision and drainage of left forearm abscess Anesthesia: local Surgeon: Boston Fitch Dry Plasterer Helper #1: Bladimir Forrester Estimated Blood Loss (ml): 2 Pathology: none sent Condition: stable Disposition: floor Indications for Procedure: Left forearm abscess Operative Findings: Greater than 50 cc of purulent material Description of Procedure: The patient was cleaned and draped in sterile fashion a timeout was performed and the physicians agreed the patient was anesthetized using 1% epinephrine and lidocaine mixture. A #15 blade was then used to make a 2 cm incision in the most fluctuant area and a hemostat was used to break up any loculations and a large amount of purulent material was expressed this was suctioned and irrigated with normal saline until clean and 1 inch iodoform packing was used to pack the site and covered with a sterile dressing the patient tolerated procedure well
--- NOTE | 2025-02-09 13:25 | P.PN ---
Subjective Progress Note Date: 02/09/25 Principal diagnosis: Hospital course: Patient is a 54-year-old female with PMH of diabetes mellitus and regular IV drug use who presents to the emergency department with left upper extremity pain and swelling. She states that the pain began 2 days ago when she noticed increasing pain and swelling radiating down her left arm. She is an IV drug user and reports last injecting meth into her left arm approximately 1 week prior. States she noticed it almost immediately and it has progressively worsened. She denies fever, nausea, vomiting. She does state that she has had previous abscesses from injecting herself in the past, however notes none have been this severe. Believes her last abscess was approximately 2 years prior.WBCs at 16.97, hemoglobin 16.1, sodium 128, potassium 5.0, chloride 85, bicarb 25, BUN 10, creatinine 0.33, lactic acid 2.2, calcium 9.8, total bilirubin 1.4, AST 33, ALT 38, alkaline phosphatase 337, CRP 26.3. Urine toxi cology screen positive for methamphetamines as well as amphetamines. CT scan of the left upper extremity showed abscess in the antecubital fossa measuring approximately 4.9 x 3.8 x 7.0 cm consisting of loculated fluid and multiple foci of air. Patient was admitted for management of sepsis secondary to abscess, started on vancomycin, Rocephin, Flagyl, ID consulted, general surgery consulted, HIV, h epatitis and syphilis screening ordered. 02/06: Patient was seen and examined in the ER, complains of ongoing left arm pain, otherwise denies any complaints at this time. Surgery planning for bedside I&D. WBC trending down to 13.4, corrected sodium 132, potassium 3.3, blood glucose is not controlled, added basal bolus regimen with Lantus. 10, mealtime 3. ID switched antibiotics to vancomycin and cefepime. 02/07: GEN surgery performed I&D 02/06, no acute events overnight, WBC count normal, hemoglobin 11.3, blood glucose is not under control, Lantus increased to 25, mealtime 7, moderate intensity SSI, A1c 14.0 02/09/25: Patient seen and examined at bedside today. She reports pain on the left upper arm. No other complaints. Review of systems: Pertinent positives and negatives as discussed in HPI, a complete review of systems was performed and all other systems are negative. Vitals: Signs Reviewed, Pulse 109 bpm, BP 169/96 Physical examination: General: nontoxic, no distress, appears at stated age Derm: warm, dry, intact, left forearm covered in dressing Head: atraumatic, normocephalic, symmetric Eyes: EOMI, anicteric sclera Mouth: no lip lesion, mucus membranes moist Cardiovascular: S1 S2 reg, no murmur Lungs: CTA bilateral, no rhonchi, no rales, no accessory muscle use Abdominal: soft, non-tender to palpataion Extremities: No cyanosis, clubbing, or pedal edema. Neuro: Alert, Oriented, Gross neurological examination did not reveal any focal deficits. Psych: well appearing, appropriate affect Data Reviewed Today: Labs: WBC 6.77, hemoglobin 11.2, sodium 135, potassium 4.2, bicarb 21.1, creatinine 0.5, total bilirubin less than 0.2, alkaline phosphatase 185, glucose 441 preliminary blood cultures show no growth after 72 hours Imaging: Assessment/Plan: Patient is a 54-year-old female with past medical history of diabetes mellitus and regular IV drug use presented with left upper extremity pain and swelling. She was diagnosed with sepsis secondary to left upper extremity cellulitis and underwent I&D on 02/06. She continues to be on vancomycin. Possible discharge home tomorrow with oral antibiotics. Active: #. Sepsis secondary to left upper extremity cellulitis, abscess s/p I&D 02/06 #. Lactic acidosis secondary to above, resolved Left upper extremity CT read and reviewed, showed evidence of abscess in antecubital fossa measuring 4.9 x 3.8 x 7.0 cm Wound cultures growing MRSA, preliminary blood cultures show no growth after 48 hours Continue IV vancomycin, monitor for renal toxicity ID is following General surgery is following Monitor CBC Continue Ibuprofen, Morphine for pain management Possible discharge tomorrow, with oral antibiotics #. Type II DM A1c 14.0 Glucose today 441 Lantus increased to 45 units SQ HS, Lispro 14 units TID Continue moderate intensity sliding scale monitor for hypoglycemia Accu-Cheks ACHS #. IV drug use #. Hepatitis C IgG positive Social work consulted HIV negative, syphilis negative Check viral load hepatitis C #. Nicotine dependence Continue Nicotine patch #. Hypokalemia, resolved #. Polycythemia, resolved #. Thrombocytosis, resolved F: None E: Replete as required N: Consistent carbohydrate diet A: Ambulatory DVT prophylaxis: Lovenox 40 mg SQ daily Code status: Full code Anticipated discharge place: Pending clinical course Anticipated discharge time: Pending clinical course Dictation was produced using [employer] dictation software. please excuse any grammatical, word or spelling errors. Harriett Cabrera MD PGY-1 IM I have seen and evaluated the patient today. Discussed with the resident and agree with the residents finding and plan as documented in the resident's note. Changes highlighted in blue font. Objective - Vital Signs Vital signs: Vital Signs Temp 98.6 F 02/09/25 07:23 Pulse 109 H 02/09/25 07:23 Resp 14 02/09/25 07:23 BP 169/96 02/09/25 07:23 Pulse Ox 98 02/09/25 07:23 FiO2 Intake & Output 02/08/25 02/09/25 02/09/25 18:59 06:59 18:59 Weight 54.431 kg Other: Voiding Method Toilet # Voids 5 - Labs CBC & Chem 7: 02/09/25 05:09 02/09/25 05:09 Labs: Abnormal Lab Results - Last 24 Hours (Table) 02/08/25 02/08/25 02/08/25 Range/Units 07:31 11:22 16:11 Sodium 135 L (137-145) mmol/L Potassium 3.1 L (3.5-5.1) mmol/L Creatinine 0.33 L (0.52-1.04) mg/dL Glucose 243 H (74-99) mg/dL POC Glucose (mg/dL) 137 H 492 H (70-110) mg/dL Calcium 8.1 L (8.4-10.2) mg/dL Total Bilirubin 0.1 L (0.2-1.3) mg/dL Alkaline Phosphatase 142 H (38-126) U/L Total Protein 5.2 L (6.3-8.2) g/dL Albumin 2.3 L (3.5-5.0) g/dL 02/08/25 02/09/25 Range/Units 20:16 06:05 Sodium (137-145) mmol/L Potassium (3.5-5.1) mmol/L Creatinine (0.52-1.04) mg/dL Glucose (74-99) mg/dL POC Glucose (mg/dL) 265 H 441 H (70-110) mg/dL Calcium (8.4-10.2) mg/dL Total Bilirubin (0.2-1.3) mg/dL Alkaline Phosphatase (38-126) U/L Total Protein (6.3-8.2) g/dL Albumin (3.5-5.0) g/dL Microbiology - Last 24 Hours (Table) 02/05/25 19:22 Urine Culture - Final Urine,Clean Catch Staphylococcus epidermidis 02/06/25 00:22 Blood Culture - Preliminary Blood 02/06/25 05:32 Gram Stain - Final Arm - Left Wound Culture - Final Methicillin resist S. aureus
--- NOTE | 2025-02-09 15:08 | P.PN ---
Subjective Progress Note Date: 02/09/25 Principal diagnosis: Reason for follow-up is left upper arm abscess Patient is a 54-year-old female with a past medical history significant for diabetes mellitus smoking and IV drug use presenting the hospital with left antecubital fossa area pain swelling redness has been diagnosed with a left antecubital fossa abscess prompting this consultation. On today's evaluation that is 02/09/2025, Patient is afebrile patient is currently on room air and denies having any shortness of breath, the patient denies any chest pain or cough, the patient denies any nausea vomiting did not have any abdominal pain and no diarrhea, pain to the left upper extremity is currently controlled. Patient white count is 6.77, creatinine 0.5 cultures with MRSA Objective - Vital Signs Vital signs: Vital Signs Temp 98.5 F 02/09/25 13:40 Pulse 116 H 02/09/25 13:40 Resp 14 02/09/25 07:23 BP 169/96 02/09/25 07:23 Pulse Ox 98 02/09/25 07:23 FiO2 Intake & Output 02/08/25 02/09/25 02/09/25 18:59 06:59 18:59 Weight 54.431 kg Other: Voiding Method Toilet # Voids 5 - Exam GENERAL DESCRIPTION: Middle-age female lying in bed in no distress RESPIRATORY SYSTEM: Unlabored breathing , decreased breath sounds at bases HEART: S1 S2 regular rate and rhythm , ABDOMEN: Soft , no tenderness EXTREMITIES: Left upper extremity is currently dressed - Labs CBC & Chem 7: 02/09/25 05:09 02/09/25 05:09 Labs: Abnormal Lab Results - Last 24 Hours (Table) 02/08/25 02/08/25 02/09/25 Range/Units 16:11 20:16 05:09 Hgb 11.2 L (12.0-15.0) g/dL Hct 35.9 L (37.2-46.3) % MCHC 31.2 L (32.0-37.0) g/dL Immature Gran # 0.18 H (0.00-0.04) X 10*3/uL Carbon Dioxide (21.6-31.8) mmol/L Anion Gap (4.00-12.00) mmol/L Creatinine (0.6-1.5) mg/dL BUN/Creatinine Ratio (12.00-20.00) Ratio Glucose (70-110) mg/dL POC Glucose (mg/dL) 492 H 265 H (70-110) mg/dL Calcium (8.7-10.3) mg/dL Total Bilirubin (0.3-1.2) mg/dL Alkaline Phosphatase (41-126) U/L Total Protein (6.2-8.2) g/dL Albumin (3.8-4.9) g/dL Albumin/Globulin Ratio (1.60-3.17) Ratio 02/09/25 02/09/25 02/09/25 Range/Units 05:09 06:05 11:09 Hgb (12.0-15.0) g/dL Hct (37.2-46.3) % MCHC (32.0-37.0) g/dL Immature Gran # (0.00-0.04) X 10*3/uL Carbon Dioxide 21.1 L (21.6-31.8) mmol/L Anion Gap 12.90 H (4.00-12.00) mmol/L Creatinine 0.5 L (0.6-1.5) mg/dL BUN/Creatinine Ratio 25.40 H (12.00-20.00) Ratio Glucose 429 H (70-110) mg/dL POC Glucose (mg/dL) 441 H 298 H (70-110) mg/dL Calcium 8.2 L (8.7-10.3) mg/dL Total Bilirubin <0.2 L (0.3-1.2) mg/dL Alkaline Phosphatase 185 H (41-126) U/L Total Protein 5.6 L (6.2-8.2) g/dL Albumin 2.6 L (3.8-4.9) g/dL Albumin/Globulin Ratio 0.87 L (1.60-3.17) Ratio Microbiology - Last 24 Hours (Table) 02/06/25 00:22 Blood Culture - Preliminary Blood 02/05/25 19:22 Urine Culture - Final Urine,Clean Catch Staphylococcus epidermidis Assessment and Plan (1) Abscess of left arm Current Visit: Yes Status: Acute Code(s): L02.414 - CUTANEOUS ABSCESS OF LEFT UPPER LIMB SNOMED Code(s): 76182403820321791 (2) Allergy to sulfa drugs Current Visit: Yes Status: Acute Code(s): Z88.2 - ALLERGY STATUS TO SULFONAMIDES SNOMED Code(s): 14649967 (3) IVDU (intravenous drug user) Current Visit: Yes Status: Acute Code(s): F19.90 - OTHER PSYCHOACTIVE SUBSTANCE USE, UNSPECIFIED, UNCOMPLICATED SNOMED Code(s): 085918596 (4) Left arm cellulitis Current Visit: Yes Status: Acute Code(s): L03.114 - CELLULITIS OF LEFT UPPER LIMB SNOMED Code(s): 24327356922838785 (5) Sepsis Current Visit: Yes Status: Acute Code(s): A41.9 - SEPSIS, UNSPECIFIED ORGANISM SNOMED Code(s): 74393232 Plan: 1patient presenting to the hospital with sepsis in this patient who did have fever tachycardia elevated white count meeting criteria for SIRS/sepsis source is left antecubital fossa abscess from injection/IV drug use and will need to cover for resistant gram-positive as well as gram-negative pathogen 2-blood culture pending local culture currently growing MRSA blood culture have been negative so far 3-patient will be treated with vancomycin for while inpatient finishing therapy with oral Zyvox on discharge Dictation was produced using [employer] dictation software. please excuse any grammatical, word or spelling errors. Time with Patient: Less than 30
[2025-02-09 16:31] LABS: Glucose,Whole Blood 221 mg/dL (70-110)
[2025-02-09 21:13] LABS: Glucose,Whole Blood 326 mg/dL (70-110)
[2025-02-09] MEDS: INSULIN GLARGINE (LANTUS) 100 UNIT/ML SYR SQ SCH (21:33)
[2025-02-10 01:35] VITALS: RESP 18
[2025-02-10 04:12] LABS: African American GFR (CKD) >90 (>60 ml/min/1.73 sqM); Anion Gap 7 mmol/L; Blood Urea Nitrogen 8 mg/dL (7-17); Calcium 8.8 mg/dL (8.4-10.2); Carbon Dioxide 28 mmol/L (22-30); Chloride 98 mmol/L (98-107); Glucose 247 mg/dL (74-99); Non-African American GFR(CKD) >90 (>60 ml/min/1.73 sqM); Potassium 3.6 mmol/L (3.5-5.1); Sodium 133 mmol/L (137-145)
[2025-02-10 06:41] LABS: Glucose,Whole Blood 245 mg/dL (70-110)
[2025-02-10 07:32] LABS: HCT 35.8 % (37.2-46.3); HGB 11.6 g/dL (12.0-15.0); MCHC 32.4 g/dL (32.0-37.0); MCV 86.5 fL (80.0-97.0); Mean Platelet Volume 9.4 fL (9.5-12.2); Platelet Count 389 10*3/uL (140-440); RBC 4.14 10*6/uL (4.10-5.20); WBC 8.68 10*3/uL (4.50-10.00)
[2025-02-10 07:39] VITALS: BP 155/80; PULSE 105; TEMP 98.1
[2025-02-10 07:48] LABS: African American GFR (CKD) >90 (>60 ml/min/1.73 sqM); Anion Gap 5 mmol/L; Blood Urea Nitrogen 9 mg/dL (7-17); Calcium 8.8 mg/dL (8.4-10.2); Carbon Dioxide 30 mmol/L (22-30); Chloride 102 mmol/L (98-107); Glucose 252 mg/dL (74-99); Non-African American GFR(CKD) >90 (>60 ml/min/1.73 sqM); Potassium 3.4 mmol/L (3.5-5.1); Sodium 137 mmol/L (137-145)
[2025-02-10 11:16] LABS: Glucose,Whole Blood 88 mg/dL (70-110)
--- NOTE | 2025-02-10 11:17 | P.PN ---
Progress Note - Text Progress Note Date: 02/10/25 No acute events overnight. Pain is controlled. Denies fevers and chills PHYSICAL EXAM: VITAL SIGNS: Reviewed GENERAL: Well-developed in no acute distress. Extremities: Left arm antecubital fossa dressing C/D/I NEUROLOGIC: Alert and oriented. Cranial nerves II through XII grossly intact. ASSESSMENT: 1. Left antecubital fossa abscess due to IV drug use s/p Incision and Drainage 2. Diabetes mellitus with elevated blood sugars PLAN: - ID recs - Continue antibiotics - Regular Diet - Continue pain management Yannick Julio DO [facility] [phone]
--- NOTE | 2025-02-10 12:50 | P.DS ---
Providers Date of admission: 02/05/25 23:22 Expected date of discharge: 02/10/25 Attending physician: Abdirahman Bauer MD Consults: 02/05/25 23:19 Consult Physician Urgent Consulting Provider: Arnie Lai Consult Reason/Comments: Left upper extremity cellulitis, IVDU, sepsis Do you want consulting provider notified?: Yes 02/06/25 02:09 Consult Physician Urgent Consulting Provider: Boston Fitch Consult Reason/Comments: LUE Abscess, IVDU Do you want consulting provider notified?: Yes Primary care physician: Dom Arline [facility] Course: Discharge diagnosis: Sepsis secondary to left upper extremity cellulitis, abscess s/p I&D 02/06 Lactic acidosis secondary to above, resolved Type II DM IV drug use Hepatitis C IgG positive Nicotine dependence Hypokalemia, resolved Polycythemia, resolved Thrombocytosis, resolved Hospital Course: Patient is a 54-year-old female with history of diabetes mellitus and regular IV drug use who presents to the emergency department with left upper extremity pain and swelling. She reports radiation of the pain down her left arm. She is an IV drug user and reports last injecting meth into her left arm approximately 1 week prior. States she noticed it almost immediately and it has progressively worsened. Initial workup showed her vitals- Blood pressure 164/103, heart rate 140, respiratory rate 17, SpO2 98% on room air. Labs on admission- WBCs at 16.97, hemoglobin 16.1, hematocrit 47.5, platelet 462; sodium 128, potassium 5.0, chloride 85, bicarb 25, BUN 10, creatinine 0.33, lactic acid 2.2, calcium 9.8, total bilirubin 1.4, AST 33, ALT 38, alkaline phosphatase 337, CRP 26.3. Urinalysis 4+ glucose, 1+ ketone, positive nitrites. Urine toxicology screen positive for methamphetamines as well as amphetamines. CT scan of the left upper extremity showed abscess in the antecubital fossa measuring approximately 4.9 x 3.8 x 7.0 cm consisting of loculated fluid and multiple foci of air. At this point the patient was started on vancomycin, Rocephin and Flagyl along with IV fluids. General surgery was consulted, and patient underwent sharp incision and drainage of the left forearm abscess and greater than 50 cc of purulent material was found. HIV, syphillis, and Hep B testing was negative. Hep C IgG Ab was positive and Hep C viral load is pending. Blood culture was negative. Wound culture grew MRSA. She was continued on Vancomycin alone for 5 days. Patient had clinical improvement and she has been optimized for discharge. She will finish therapy with Zyvox upon discharge. Patient seen at bedside today and is feeling good and excited about discharge. Patient will be discharged today and is given a script for Linezolid 600 mg PO Q12HR for 10 days, Insulin Aspart 14 units SQ TID, Insulin Glargine 45 units SQ HS Patient is given a handout for abscess and is advised to be compliant with medications. Patient is advised to follow-up with PCP in 1-2 days, surgery in 2 weeks and wound center in 1 week . Vital signs are reviewed and stable General: nontoxic, no distress, appears at stated age Derm: warm, dry, intact, left forearm covered in dressing Head: atraumatic, normocephalic, symmetric Eyes: EOMI, anicteric sclera Mouth: no lip lesion, mucus membranes moist Cardiovascular: S1 S2 reg, no murmur Lungs: CTA bilateral, no rhonchi, no rales, no accessory muscle use Abdominal: soft, non-tender to palpataion Extremities: No cyanosis, clubbing, or pedal edema. Neuro: Alert, Oriented, Gross neurological examination did not reveal any focal deficits. Psych: well appearing, appropriate affect A total of 30 minutes of time were spent preparing this complex discharge summary. Patient was discharged on 02/10/25 at 1028. Dictation was produced using [employer] dictation software. please excuse any grammatical, word or spelling error Harriett Cabrera MD PGY-1 IM I have seen and evaluated the patient today. Discussed with the resident and agree with the residents finding and plan as documented in the resident's note. Changes highlighted in blue font. Patient Condition at Discharge: Stable Plan - Discharge Summary Discharge Rx Participant: Yes New Discharge Prescriptions: New Linezolid [Zyvox] 600 mg PO Q12H 10 Days #20 tab Insulin Aspart [Insulin Aspart Flexpen] 14 unit SQ TID #7 each Insulin Glargine,Hum.rec.anlog [Insulin Glargine Solostar] 45 unit SQ HS #7 each Discontinued Insulin Glargine,Hum.rec.anlog [Lantus Solostar Pen] 15 - 20 units SQ HS Discharge Medication List Insulin Aspart [Insulin Aspart Flexpen] 14 unit SQ TID #7 each 02/10/25 [Rx] Insulin Glargine,Hum.rec.anlog [Insulin Glargine Solostar] 45 unit SQ HS #7 each 02/10/25 [Rx] Linezolid [Zyvox] 600 mg PO Q12H 10 Days #20 tab 02/10/25 [Rx] Follow up Appointment(s)/Referral(s): Boston Fitch DO [Doctor of Osteopathic Medicine] - 02/24/25 9:30 am None,Stated [REFERRING] - 1-2 days [facility] [NON-STAFF] - 02/17/25 8:00 am Patient Instructions/Handouts: Abscess (GEN) Activity/Diet/Wound Care/Special Instructions: See PCP and follow up with surgeon Discharge Disposition: HOME SELF-CARE
[2025-02-10] MEDS: POTASSIUM CHLORIDE ER 20 MEQ TAB.ER PO STA (13:30)
--- NOTE | 2025-02-10 14:43 | P.PN ---
Subjective Progress Note Date: 02/10/25 Principal diagnosis: Reason for follow-up is left upper arm abscess Patient is a 54-year-old female with a past medical history significant for diabetes mellitus smoking and IV drug use presenting the hospital with left antecubital fossa area pain swelling redness has been diagnosed with a left antecubital fossa abscess prompting this consultation. On today's evaluation that is 02/10/2025, patient has been afebrile, patient is breathing comfortably and is currently on room air, patient denies having any chest pain and cough, patient denies nausea vomiting or diarrhea and no abdominal pain pain to the left lower extremity has decreased intensity. Patient white count 8.68 creatinine 0.34 blood culture has been negative culture with MRSA Objective - Vital Signs Vital signs: Vital Signs Temp 98.1 F 02/10/25 07:37 Pulse 105 H 02/10/25 07:37 Resp 18 02/10/25 07:37 BP 155/80 02/10/25 07:37 Pulse Ox 96 02/10/25 07:37 FiO2 Intake & Output 02/09/25 02/10/25 02/10/25 18:59 06:59 18:59 Other: # Voids 4 1 1 - Exam GENERAL DESCRIPTION: Middle-age female lying in bed in no distress RESPIRATORY SYSTEM: Unlabored breathing , decreased breath sounds at bases HEART: S1 S2 regular rate and rhythm , ABDOMEN: Soft , no tenderness EXTREMITIES: Left upper extremity is currently dressed - Labs CBC & Chem 7: 02/10/25 07:11 02/10/25 07:11 Labs: Abnormal Lab Results - Last 24 Hours (Table) 02/09/25 02/09/25 02/10/25 Range/Units 16:30 21:01 03:26 Hgb (12.0-15.0) g/dL Hct (37.2-46.3) % MPV (9.5-12.2) fL Sodium 133 L (137-145) mmol/L Potassium (3.5-5.1) mmol/L Creatinine 0.38 L (0.52-1.04) mg/dL Glucose 247 H (74-99) mg/dL POC Glucose (mg/dL) 221 H 326 H (70-110) mg/dL 02/10/25 02/10/25 02/10/25 Range/Units 06:38 07:11 07:11 Hgb 11.6 L (12.0-15.0) g/dL Hct 35.8 L (37.2-46.3) % MPV 9.4 L (9.5-12.2) fL Sodium (137-145) mmol/L Potassium 3.4 L (3.5-5.1) mmol/L Creatinine 0.34 L (0.52-1.04) mg/dL Glucose 252 H (74-99) mg/dL POC Glucose (mg/dL) 245 H (70-110) mg/dL Microbiology - Last 24 Hours (Table) 02/06/25 00:22 Blood Culture - Preliminary Blood Assessment and Plan (1) Abscess of left arm Current Visit: Yes Status: Acute Code(s): L02.414 - CUTANEOUS ABSCESS OF LEF T UPPER LIMB SNOMED Code(s): 71963220908862078 (2) Allergy to sulfa drugs Current Visit: Yes Status: Acute Code(s): Z88.2 - ALLERGY STATUS TO SULFONAMIDES SNOMED Code(s): 85132122 (3) IVDU (intravenous drug user) Current Visit: Yes Status: Acute Code(s): F19.90 - OTHER PSYCHOACTIVE SUBSTANCE USE, UNSPECIFIED, UNCOMPLICATED SNOMED Code(s): 077306365 (4) Left arm cellulitis Current Visit: Yes Status: Acute Code(s): L03.114 - CELLULITIS OF LEFT UPPER LIMB SNOMED Code(s): 22484332654967917 (5) Sepsis Current Visit: Yes Status: Acute Code(s): A41.9 - SEPSIS, UNSPECIFIED ORGANISM SNOMED Code(s): 72967034 Plan: 1patient presenting to the hospital with sepsis in this patient who did have fever tachycardia elevated white count meeting criteria for SIRS/sepsis source is left antecubital fossa abscess from injection/IV drug use and will need to cover for resistant gram-positive as well as gram-negative pathogen 2-blood culture pending local culture currently growing MRSA blood culture have been negative so far 3-patient has received adequate IV vancomycin while inpatient blood culture negative she will finish therapy with a 10-day course of oral Zyvox would benefit from wound care follow-up on discharge to help with healing of the left lower extremity wound discussed with the nursing staff as well as resident physician Dictation was produced using [employer] dictation software. please excuse any grammatical, word or spelling errors. Time with Patient: Less than 30
[2025-02-11] MEDS ORDERED: VANCOMYCIN TROUGH DUE 1 EACH MISC MISCELLANE ONE (05:00)
== END 2025-02-10 14:50 | disposition home or self-care (01) | DRG 872 ==
LOC: EC 18:52 → 3SCARD 23:22 → 4SSUR 02-06 12:42
PROVIDERS: ADMIT Internal Medicine; ATTEND Internal Medicine
PROC: 0J9H0ZZ Drainage of Left Lower Arm Subcutaneous Tissue and Fascia, Open Approach (ICD-10-PCS; principal; 2025-02-06)
DX: A41.9 Sepsis, unspecified organism (principal); E87.20 Acidosis, unspecified; E11.65 Type 2 diabetes mellitus with hyperglycemia; F15.10 Other stimulant abuse, uncomplicated; B19.20 Unspecified viral hepatitis C without hepatic coma; L03.114 Cellulitis of left upper limb; L02.414 Cutaneous abscess of left upper limb; Z79.4 Long term (current) use of insulin; B95.62 Methicillin resistant Staphylococcus aureus infection as the cause of diseases classified elsewhere; D75.1 Secondary polycythemia; D75.839 Thrombocytosis, unspecified; E87.6 Hypokalemia; F17.200 Nicotine dependence, unspecified, uncomplicated; Z88.2 Allergy status to sulfonamides; Z79.899 Other long term (current) drug therapy
CPT/HCPCS: 36415; 80048; 80053; 80074; 80202; 80306; 81001; 82009; 83036; 83605; 83735; 85025; 85027; 85652; 86140; 86780; 87040; 87070; 87077; 87086; 87186; 87205; 87390; 87522; 93005; 96361; 96365; 96366; 96367; 96368; 96375; 99291